=== PATIENT | male | born 1990 | race Caucasian/White ===

== ENCOUNTER 2016-12-01 23:11 | Emergency (ER) | payer OTHER ==
[~2016-12-01] VITALS: Ht 165.1 cm; Wt 73.1 kg
[~2016-12-01 23:11] MED LIST: ATV/1 PO; ETAN50IN2 SC; FOLI-11 PO; INDO-22 PO; RANI75TA7 PO
[2016-12-01 23:16] VITALS: Ht 165.1 cm; Wt 73.1 kg
[2016-12-01] MEDS ORDERED: SODIUM CHLORIDE 0.9% 1000ML 1,000 ML IV STA (23:28)
[2016-12-01] MEDS ORDERED: ZNTT/150 PO (23:42)
[2016-12-01] MEDS ORDERED: FOLI1TAB7 PO (23:42)
[2016-12-01] MEDS ORDERED: CITA40TA12 PO (23:43)
[2016-12-01] MEDS ORDERED: CLON2TAB3 PO (23:44)
[2016-12-01] MEDS ORDERED: BUPR8SUB19 SL (23:45)
[2016-12-02 00:03] LABS: BASO % 0.2 %; BASO ABS # 0.02 K/uL (0-0.2); COMPLETE YES; EOS % 1.9 %; HEMATOCRIT 38.8 % (42-52); IG% 0.2 %; LYMPH % 24.4 %; LYMPH ABS # 2.39 K/uL (1.2-3.4); MEAN CELL VOLUME 85.1 fL (80-100); MEAN CORPUSCULAR HEMOGLOBIN 30.7 pg (25-34); MEAN CORPUSCULAR HGB CONC 36.1 g/dl (32-36); MEAN PLATELET VOLUME 9.5 fL (7.4-10.4); MONO % 9.7 %; NEUT % 63.6 %; PLATELET COUNT 221 K/uL (130-400); RED BLOOD COUNT 4.56 M/uL (4.7-6.1); WHITE BLOOD COUNT 9.81 K/uL (4.8-10.8)
[2016-12-02 00:17] LABS: INR 1.1 (0.9-1.1); PARTIAL THROMBOPLASTIN RATIO 1.1; PROTHROMBIN TIME (PATIENT) 11.6 SECONDS (9.0-12.0)
[2016-12-02 00:29] LABS: ACETAMINOPHEN < 2 ug/ml (10-30)
[2016-12-02 00:33] LABS: ALKALINE PHOSPHATASE 68 U/L (45-117); ALT/SGPT 72 U/L (12-78); BLOOD UREA NITROGEN 29 mg/dl (7-18); BUN/CREATININE RATIO 24.3 (10-20); CALCIUM 8.9 mg/dl (8.5-10.1); CARBON DIOXIDE 27 mmol/L (21-32); CHLORIDE 101 mmol/L (98-107); GLUCOSE 102 mg/dl (70-99); SODIUM 137 mmol/L (136-145)
[2016-12-02 00:33] LABS: URINE APPEARANCE TURBID (CLEAR); URINE BILIRUBIN NEG (NEG); URINE COLOR DK YELLOW; URINE EPITHELIAL CELL AUTO >30 /lpf (0-5); URINE NITRITE NEG (NEG); URINE SPECIFIC GRAVITY 1.025 (1.000-1.030); UROBILINOGEN NEG (NEG)
[2016-12-02 00:37] LABS: MANUAL MICROSCOPIC REQUIRED? NO; REVIEW REQ? YES
[2016-12-02 00:53] LABS: BENZODIAZEPINE, URINE NEG (NEG); COCAINE,URINE POS (NEG); PHENCYCLIDINE, URINE NEG (NEG)
[2016-12-02] MEDS ORDERED: SODIUM CHLORIDE 0.9% 1000ML 1,000 ML IV STA (01:19)
[2016-12-02 01:35] LABS: POTASSIUM 3.6 mmol/L (3.5-5.1)
--- NOTE | 2016-12-02 03:13 | EMERGENCY ROOM VISIT NOTE ---
History First contact with patient: 23:22 Chief Complaint: ALTERED MENTAL STATUS Stated Complaint: ALTERED MENTAL STATUS/DRUG USE Nursing Triage Summary: Patient was shopping at [facility] "acting strange" when Police arrived patient was crawling between cars in the parking lot. Needle found on patient which he states he uses for Steroid injections. Patient very restless on arrival. Patient states he hasn't slept in two days because of his restless legs. Patient states he attempted to eat cotton candy to help with restless legs, but it didn't help. History of Present Illness The patient is a 26 year old male who presents to the Emergency Room with complaints of acting strange at [facility]. Patient states he took his Klonopin, and someone else's narcotics tonight. Patient denies shooting up any IV drugs tonight. He states the other day he shot up someone else's Dilaudid. Patient states he was outside [facility] smoking and his legs became restless and started wandering around the [facility] parking lot. Patient states he likes to eat a lot of cotton candy to help relax his legs. Patient denies chest pain, dyspnea, fever, chills, nausea, vomiting, diarrhea, diaphoresis, delusions, hallucinations, suicidal or homicidal ideations. Patient adamantly denies any IV drugs today. He adamantly denies any illegal drugs besides taking 2 Percocets that are not his. No alcohol today. The police found a needle in his pocket. Patient states he uses to shoot up his Dilaudid. Review of Systems See HPI for pertinent positives & negatives. A total of 10 systems reviewed and were otherwise negative. Past Medical/Surgical History None Social History Smoking Status: Current Every Day Smoker Alcohol Use: occasionally Drug Use: heroin Occupation Status: unemployed Current/Historical Medications Scheduled Buprenorphine Hcl (Subutex), Unknown Dose SL DAILY Citalopram Hydrobromide (Celexa), 40 MG PO DAILY Clonazepam (Klonopin), 2 MG PO DIRECTED Folic Acid (Folvite), 1 MG PO DAILY Indomethacin (Indocin), 50 MG PO TID Ranitidine (Zantac), 150 MG PO BID Allergies Coded Allergies: No Known Allergies (Unverified , 12/01/16) Physical Exam Vital Signs Date Time Temp Pulse Resp B/P Pulse Ox O2 Delivery O2 Flow Rate FiO2 12/02/16 02:24 108 16 138/88 97 Room Air 12/02/16 01:10 117 16 127/68 92 Room Air 12/02/16 00:10 115 12/01/16 23:59 Room Air 12/01/16 23:23 Room Air 12/01/16 23:16 36.9 111 16 124/72 95 Room Air Physical Exam VITALS: Vitals are noted on the nurse's note and reviewed by myself. Vital signs stable. GENERAL: White male answering questions appropriately, in no acute distress, nondiaphoretic, well-developed well-nourished. SKIN: Multiple track vee to bilateral arms of surrounding erythema and skin popping without palpable abscess The rest of the skin was without rashes, erythema, edema, or bruising. There is no tenting of the skin. Capillary reflex less than 2 seconds. HEAD: Normocephalic atraumatic. EARS: External auditory canals clear, tympanic membranes pearly keane without erythema or effusion bilaterally. EYES: Pupils pinpointed and are equal round and reactive to light and accommodation. Conjunctivae without injection, sclerae without icterus. Extraocular movements intact. NOSE: Patent, turbinates without inflammation or discharge. MOUTH: Mucous membranes moist. Pharynx without erythema or exudate. Uvula midline. Airway patent. Tongue does not deviate. NECK: Supple without nuchal rigidity. No lymphadenopathy. No thyromegaly. Cervical spine is nontender. No JVD. HEART: Regular rate and rhythm without murmurs gallops or rubs. LUNGS: Clear to auscultation bilaterally without wheezes, rales or rhonchi. No dullness to percussion. No retractions or accessory muscle use. ABDOMEN: Positive bowel sounds x 4. Normal tympanic percussion. Soft, nontender, without masses or organomegaly. Vila sign negative. No guarding or rebound tenderness. MUSCULOSKELETAL: No muscle atrophy, erythema, or edema noted. NEURO: Patient was alert and oriented to person place and time. Normal sensation to light and sharp touch. No focal neurological deficits. Medical Decision & Procedures Laboratory Results 12/01/16 23:47 Red Blood Count 4.56, Mean Corpuscular Volume 85.1, Mean Corpuscular Hemoglobin 30.7, Mean Corpuscular Hemoglobin Concent 36.1, Mean Platelet Volume 9.5, Neutrophils (%) (Auto) 63.6, Lymphocytes (%) (Auto) 24.4, Monocytes (%) (Auto) 9.7, Eosinophils (%) (Auto) 1.9, Basophils (%) (Auto) 0.2, Neutrophils # (Auto) 6.24, Lymphocytes # (Auto) 2.39, Monocytes # (Auto) 0.95, Eosinophils # (Auto) 0.19, Basophils # (Auto) 0.02 12/01/16 23:47 12/02/16 01:00 Test 12/01/16 23:47 12/02/16 00:00 12/02/16 01:00 White Blood Count 9.81 K/uL (4.8-10.8) Red Blood Count 4.56 M/uL (4.7-6.1) Hemoglobin 14.0 g/dL (14.0-18.0) Hematocrit 38.8 % (42-52) Mean Corpuscular Volume 85.1 fL (80-100) Mean Corpuscular Hemoglobin 30.7 pg (25-34) Mean Corpuscular Hemoglobin Concent 36.1 g/dl (32-36) Platelet Count 221 K/uL (130-400) Mean Platelet Volume 9.5 fL (7.4-10.4) Neutrophils (%) (Auto) 63.6 % Lymphocytes (%) (Auto) 24.4 % Monocytes (%) (Auto) 9.7 % Eosinophils (%) (Auto) 1.9 % Basophils (%) (Auto) 0.2 % Neutrophils # (Auto) 6.24 K/uL (1.4-6.5) Lymphocytes # (Auto) 2.39 K/uL (1.2-3.4) Monocytes # (Auto) 0.95 K/uL (0.11-0.59) Eosinophils # (Auto) 0.19 K/uL (0-0.5) Basophils # (Auto) 0.02 K/uL (0-0.2) RDW Standard Deviation 41.4 fL (36.4-46.3) RDW Coefficient of Variation 13.4 % (11.5-14.5) Immature Granulocyte % (Auto) 0.2 % Immature Granulocyte # (Auto) 0.02 K/uL (0.00-0.02) Prothrombin Time 11.6 SECONDS (9.0-12.0) Prothromb Time International Ratio 1.1 (0.9-1.1) Activated Partial Thromboplast Time 29.3 SECONDS (21.0-31.0) Partial Thromboplastin Ratio 1.1 Anion Gap 9.0 mmol/L (3-11) Est Creatinine Clear Calc Drug Dose 81.9 ml/min Estimated GFR () 96.8 Estimated GFR (Non- 83.5 BUN/Creatinine Ratio 24.3 (10-20) Osmolality 295 mOsm/kg (280-300) Calcium Level 8.9 mg/dl (8.5-10.1) Total Bilirubin 1.2 mg/dl (0.2-1) Alanine Aminotransferase (ALT/SGPT) 72 U/L (12-78) Alkaline Phosphatase 68 U/L (45-117) Total Protein 7.3 gm/dl (6.4-8.2) Albumin 3.8 gm/dl (3.4-5.0) Lipase 82 U/L (73-393) Salicylates Level < 1.7 mg/dl (2.8-20) Acetaminophen Level < 2 ug/ml (10-30) Ethyl Alcohol mg/dL < 3.0 mg/dl (0-3) Urine Color DK YELLOW Urine Appearance TURBID (CLEAR) Urine pH 5.0 (4.5-7.5) Urine Specific [place] 1.025 (1.000-1.030) Urine Protein NEG (NEG) Urine Glucose (UA) NEG (NEG) Urine Ketones 1+ (NEG) Urine Occult Blood 3+ (NEG) Urine Nitrite NEG (NEG) Urine Bilirubin NEG (NEG) Urine Urobilinogen NEG (NEG) Urine Leukocyte Esterase TRACE (NEG) Urine WBC (Auto) 5-10 /hpf (0-5) Urine RBC (Auto) 10-30 /hpf (0-4) Urine Hyaline Casts (Auto) 1-5 /lpf (0-5) Urine Epithelial Cells (Auto) >30 /lpf (0-5) Urine Bacteria (Auto) 2+ (NEG) Urine Renal Epithelial Cells /lpf (0-5) Urine Opiates Screen POS (NEG) Urine Methadone, Qualitative NEG (NEG) Urine Barbiturates NEG (NEG) Urine Phencyclidine (PCP) Level NEG (NEG) Ur Amphetamine/Methamphetamine POS (NEG) MDMA (Ecstasy) Screen POS (NEG) Urine Benzodiazepines Screen NEG (NEG) Urine Cocaine Metabolite POS (NEG) Urine Marijuana (THC) POS (NEG) Direct Bilirubin 0.3 mg/dl (0-0.2) Aspartate Amino Transf (AST/SGOT) 52 U/L (15-37) Total Creatine Kinase 717 U/L (39-308) Medications Administered Medications (Trade) Dose Ordered Sig/Velasquez Route Start Time Stop Time Status Last Admin Dose Admin Sodium Chloride 1,000 ml @ 999 mls/hr Q1H1M STAT IV 12/01/16 23:28 12/02/16 00:28 DC 12/01/16 23:54 999 MLS/HR Sodium Chloride (Nss 1000ml) 1,000 ml @ 999 mls/hr Q1H1M STAT IV 12/02/16 01:19 12/02/16 02:19 DC 12/02/16 02:24 999 MLS/HR ED Course Prior records/ancillary studies reviewed. Triage Nursing notes reviewed. Additional history obtained from nursing The patient's history was concerning for altered mental status and probable overdose. Differential diagnosis: Etiologies such as toxicologic, infection, hypoglycemia, electrolyte abnormalities, cardiac sources, intracerebral event, neurologic, as well as others were entertained. Physical examination: The patient had normal sensorium. No trauma noted. ER treatment provided: IV NSS 1 L bolus IV hydration NSS 1000 mL/hr Patient has been here before for IV drug use when a needle broke off in his arm her chart review. On reassessment the patient was stable and improving. Diagnostic interpretation by me: The electrocardiogram was negative for pathologic change. There was no QRS widening or interval prolongation. The labs revealed positive drug screen This appears to be consistent with an isolated overdose. Patient states he recreationally uses drugs to help relax. He states he's been more stressed lately with his home life. He is currently unemployed caring for his mother. Patient was discharged back home to his family in stable condition. Patient had no other medical complaints. He did not have acute abdomen on exam. By the evaluation outlined above emergent etiologies such as infection, hypoglycemia, electrolyte abnormalities, cardiac sources, intracerebral event, neurologic,as well as others were deemed relatively unlikely. The pt informed about the findings as listed above. All questions were answered and pleased with the treatment. Return instructions were outlined and the patient was discharged in stable condition. Referral: The patient was referred back to their primary care physician for follow-up in 2 to 3 days for a recheck of the current condition. Case reviewed with my attending. Medical Decision As above Impression Primary Impression: Polysubstance abuse Departure Information Dispostion Home / Self-Care Condition GOOD Referrals No Doctor, Assigned (PCP) Patient Instructions My [facility] Additional Instructions Recommend no illegal drug use. Recommend not to pick at your injection sites. Ibuprofen(Motrin, Advil) may be used for fever or pain. Use 600mg every six hours as needed. Take with food. Avoid using more than 2400mg in a 24 hour period. Do not use 2400mg per day for more than three consecutive days without physician direction. Prolonged inappropriate use can lead to stomach upset or ulcers. (AND/OR) Acetaminophen(Tylenol) may be used for fever or pain. Use 1000mg every six hours as needed. Avoid using more than 4000mg in a 24 hour period. Rest and drink plenty of fluids. Continue current medications. Return to the ER for severe pain, fevers, chest pain, difficulty breathing, abdominal pain, or any worsening of your condition. Follow up with your primary physician within 2-3 days for a recheck of the current condition.
[2016-12-02 03:27] VITALS: BP 144/78; PULSE 101; TEMP 36.9; O2SAT 96
[2016-12-07 15:28] LABS: COCAINE, URINE >50000 NG/ML (CUTOFF=100); COD UR 778 NG/ML (CUTOFF=50); HYDROCOD UR NEGATIVE NG/ML (CUTOFF=50); HYDROMOR UR 338 NG/ML (CUTOFF=50); MORPHINE UR >20000 NG/ML (CUTOFF=50); NORHYDROCODONE CONF UR NEGATIVE NG/ML (CUTOFF=50); OXYMORPH UR NEGATIVE NG/ML (CUTOFF=50)
== END 2016-12-02 03:29 | disposition home or self-care (01) ==
LOC: EDBD 23:11 → C.EDB 23:12
DX: F19.10 Other psychoactive substance abuse, uncomplicated (principal); F17.200 Nicotine dependence, unspecified, uncomplicated

== ENCOUNTER 2017-10-15 01:40 | Emergency (ER) | payer OTHER ==
[~2017-10-15] VITALS: Ht 165.1 cm; Wt 82.0 kg
[~2017-10-15 01:40] MED LIST changes: -ATV/1 PO; +BUPR8SUB19 SL; +CITA40TA12 PO; +CLON2TAB3 PO; -ETAN50IN2 SC; -FOLI-11 PO; +FOLI1TAB8 PO; -RANI75TA7 PO; +ZNTT/150 PO
[2017-10-15 01:46] VITALS: BP 143/87; PULSE 109; TEMP 36.8; O2SAT 95; Ht 165.1 cm; Wt 82.0 kg
[2017-10-15] MEDS ORDERED: LIDOCAINE HCL 1% 20 ML VIAL ONE (01:54)
[2017-10-15] MEDS ORDERED: DIPHTHERIA/TETANUS/PERTUSSIS 0.5 ML SYR/VIAL IM. ONE (02:00)
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
== END 2017-10-15 02:21 | disposition home or self-care (01) ==
LOC: C.EDB 01:44 → C.EDA 02:21
DX: S61.215A Laceration without foreign body of left ring finger without damage to nail, initial encounter (principal); W26.8XXA Contact with other sharp object(s), not elsewhere classified, initial encounter; Y92.149 Unspecified place in prison as the place of occurrence of the external cause; Z79.899 Other long term (current) drug therapy; F19.10 Other psychoactive substance abuse, uncomplicated

== ENCOUNTER 2017-11-03 09:00 | Emergency (ER) | payer OTHER ==
[~2017-11-03] VITALS: Ht 165.1 cm; Wt 86.0 kg
[2017-11-03 09:01] VITALS: Ht 165.1 cm; Wt 86.0 kg
[2017-11-03] MEDS ORDERED: OXYCODONE HCL IR 5 MG TAB (IMMEDIATE RELEASE) PO STA (09:31)
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
[2017-11-03] MEDS ORDERED: AMOX875T PO (10:36)
[2017-11-03] MEDS ORDERED: AMOXICILLIN/CLAVULANATE TAB 875 MG TAB PO ONE (10:45)
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
[2017-11-03] MEDS ORDERED: BUPR-83 PO (11:31)
[2017-11-03] MEDS ORDERED: MELO7.5T5 PO (11:31)
[2017-11-03 11:42] VITALS: BP 132/87; PULSE 90; TEMP 36.9; O2SAT 96
== END 2017-11-03 11:44 | disposition home or self-care (01) ==
LOC: C.EDB 09:00 → C.EDA 11:44
DX: T76.11XA Adult physical abuse, suspected, initial encounter (principal); S01.81XA Laceration without foreign body of other part of head, initial encounter; S00.83XA Contusion of other part of head, initial encounter; S61.259D Open bite of unspecified finger without damage to nail, subsequent encounter; W50.0XXA Accidental hit or strike by another person, initial encounter; Z87.891 Personal history of nicotine dependence; F11.90 Opioid use, unspecified, uncomplicated

== ENCOUNTER 2018-05-16 18:21 | Inpatient (IN) | payer OTHER ==
[~2018-05-16] VITALS: Ht 165.1 cm; Wt 90.5 kg
[~2018-05-16 18:21] MED LIST changes: +BUPR-83 PO; +CLON2TAB10 PO; -CLON2TAB3 PO; -INDO-22 PO; +MELO7.5T5 PO; +RANI150T85 PO; -ZNTT/150 PO
[2018-05-16] MEDS ORDERED: SODIUM CHLORIDE 0.9% 1000ML 1,000 ML IV STA (18:44)
[2018-05-16] MEDS ORDERED: CEFTRIAXONE SOD INJ 1 GM ADDVIAL IV STA (18:44)
[2018-05-16] MEDS ORDERED: INDO-24 PO (19:27)
[2018-05-16] MEDS ORDERED: OMEP20CA9 PO (19:28)
[2018-05-16] MEDS ORDERED: DOXY100C76 PO (19:28)
[2018-05-16 20:20] LABS: CREATININE 0.78 mg/dl (0.60-1.40)
[2018-05-16 20:21] LABS: ALBUMIN 3.2 gm/dl (3.4-5.0); CALCIUM 8.6 mg/dl (8.5-10.1); TOTAL PROTEIN 7.6 gm/dl (6.4-8.2)
[2018-05-16] MEDS ORDERED: VANCOMYCIN CONSULT ACTIVE PRN (21:00)
[2018-05-16] MEDS ORDERED: ACETAMINOPHEN 325 MG TAB PO PRN (21:00)
[2018-05-16] MEDS ORDERED: VANCOMYCIN IV 1,000 MG in SODIUM CHLORIDE 0.9% 250ML 250 ML IV SCH (21:00)
[2018-05-16] MEDS ORDERED: POLYETHYLENE (MIRALAX) 17 GM PACK PO PRN (21:00)
[2018-05-16] MEDS ORDERED: METHYLPREDNISOLONE IV 60 MG in SYRINGE 0 ML IV ONE (21:00)
[2018-05-16] MEDS ORDERED: ALUMINUM/MAGNESIUM/SIMETH (MAALOX MAX) 30 ML UDC PO PRN (21:00)
[2018-05-16] MEDS ORDERED: ONDANSETRON INJ 2 MG/ML 2 ML VIAL IV PRN (21:00)
[2018-05-16] MEDS ORDERED: TRAZ100T29 PO (21:07)
[2018-05-16] MEDS ORDERED: AMLO5TAB3 PO (21:07)
[2018-05-16] MEDS ORDERED: METHYLPREDNISOLONE 125 MG VIAL IV STA (21:10)
[2018-05-16] MEDS ORDERED: PIPERACILL/TAZOBAC CONSULT ACTIVE PRN (21:15)
[2018-05-16 21:25] LABS: BASO % 0.2 %; BASO ABS # 0.02 K/uL (0-0.2); EOS % 1.9 %; EOS ABS # 0.18 K/uL (0-0.5); HEMATOCRIT 39.6 % (42-52); HEMOGLOBIN 13.7 g/dL (14.0-18.0); IG# 0.02 K/uL (0.00-0.02); LYMPH % 16.6 %; LYMPH ABS # 1.61 K/uL (1.2-3.4); MEAN CELL VOLUME 88.4 fL (80-100); MEAN CORPUSCULAR HEMOGLOBIN 30.6 pg (25-34); MEAN CORPUSCULAR HGB CONC 34.6 g/dl (32-36); MEAN PLATELET VOLUME 9.4 fL (7.4-10.4); MONO % 9.6 %; MONO ABS # 0.93 K/uL (0.11-0.59); NEUT % 71.5 %; NEUT ABS # 6.92 K/uL (1.4-6.5); PLATELET COUNT 227 K/uL (130-400); RED CELL DISTRIBUTION WIDTH CV 13.7 % (11.5-14.5); RED CELL DISTRIBUTION WIDTH SD 44.2 fL (36.4-46.3); WHITE BLOOD COUNT 9.68 K/uL (4.8-10.8)
[2018-05-16 21:46] LABS: POTASSIUM 3.8 mmol/L (3.5-5.1)
[2018-05-16] MEDS ORDERED: PIPERACILL/TAZOBAC IV 3.375 GM in DEXTROSE 5% 100ML 100 ML IV SCH (22:00)
--- NOTE | 2018-05-16 22:51 | HISTORY & PHYSICAL EXAMINATION ---
DATE OF ADMISSION: 05/16/2018 CHIEF COMPLAINT: Diffuse pustular rash. HISTORY OF PRESENT ILLNESS: This is a 28-year-old male with past medical history significant for ankylosing spondylitis, history of substance abuse, chronic hepatitis C, history of depression, iritis, who presents with a diffuse rash. Patient says he develops this rash on and off and he has treated with doxycycline in the past, but this is the bad rash he has ever had. This started about 4 days ago,from neck down,involving thee trunk and lower extremities with areas of pustular rash with areas of normal skin in between. Seen dermatology today and biopsy was done, but since it is not getting better he came to hospital possibly for IV antibiotics. The patient says the last few days his appetite has gone down, but today he is feeling hungry. He has some diarrhea, he took Imodium today, but denies any blood or black stools. Making urine okay, no blood in the urine. He says he has some shortness of breath on exertion, but he also smokes tobacco. Denies any headache, no dizziness, no blurred visions, no earache, no runny nose, no sore throat, no difficulty swallowing, no chest pain, no cough.. He has some abdominal pain, pain at the skin lesion sites, with itching. No swelling in the legs. Currently resting comfortably, hemodynamically stable. ALLERGIES: No known drug allergies. PAST MEDICAL HISTORY: As mentioned above. PAST SURGICAL HISTORY: Colonoscopy with biopsy, removal of the clavicle abscess at age 19. MEDICATIONS: Currently the patient is on amlodipine 5 mg p.o. daily, Suboxone 1 film under tongue b.i.d., clindamycin ointment b.i.d., omeprazole 20 mg p.o. daily, trazodone 100 mg p.o. at bedtime, Wellbutrin SR 150 mg p.o. b.i.d., Celexa 40 mg p.o. daily, Klonopin 1 mg p.o. t.i.d. p.r.n., folic acid 1 mg p.o. daily, indomethacin 50 mg p.o. b.i.d., Zantac 150 mg p.o. b.i.d. FAMILY HISTORY: Significant for father had ankylosing spondylitis, CAD, COPD. Mother has breast cancer, hypertension. SOCIAL HISTORY: Smokes 1 pack a day for last 6 years. No alcohol use. History of marijuana and cocaine abuse in the past. REVIEW OF SYSTEMS: As per HPI. Rest of review of systems negative. PHYSICAL EXAMINATION: GENERAL: Patient is of moderate build, not in distress. VITAL SIGNS: Temperature 36.8, pulse 84, respiratory rate 16, blood pressure 160/92, oxygen 96% room air. HEENT: No pallor, no icterus. Pupils equal, round, and reactive to light. NECK: No JVD, no neck masses, no carotid bruit. CARDIOVASCULAR: S1, S2, regular rate and rhythm, no murmur, no gallop. RESPIRATORY SYSTEM: Normal AP diameter. No accessory muscle use. No wheezing, no crackles. ABDOMEN: Soft, bowel sounds present. Some tenderness. No guarding, no distention. CENTRAL NERVOUS SYSTEM: Cranial nerves II-XII grossly intact. Nonfocal. EXTREMITIES: No edema. No erythema. SKIN: Diffuse macular pustular rash involving below the neck to the trunk and lower extremities. LABORATORY DATA: Sodium 136, potassium pending, chloride 104, bicarb 24, BUN 14, creatinine 0.7, serum glucose 88, calcium 8.6, total bilirubin 0.7, direct bilirubin 0.2, AST 17, ALT 42, alkaline phosphatase is 81, lipase 70. ASSESSMENT AND PLAN: This 28-year-old male presents with a diffuse pustular rash. 1. Diffuse pustular rash involving from the neck, trunk, and extremities. Used to get this rash and treated with doxycycline in the past.But this time it's the worst rash he has ever had. He saw dermatology today and a biopsy was done. We will place him on IV vancomycin and IV Zosyn for any bacterial folliculitis and also a dose of IV steroids because of his underlying ankylosing spondylitis. Will check ESR and CRP and will follow his biopsy results. Consult dermatology and infectious disease in a.m. Antiviral treatment if needed as per ID and dermatology. 2. History of hypertension. Continue amlodipine. 3. History of depression, anxiety . on Wellbutrin and Celexa. Klonopin prn 4. History of drug abuse in the past, on Suboxone. 5. History of hepatitis C, needs followup. 6. Deep venous thrombosis prophylaxis. Could not give sequential compression devices. Patient has rash in his lower extremities. We will try to avoid Lovenox shots as patient has rash in his abdomen.Ambulation Level 1 full code. Disposition: expect to discharge home and followup with pcp and dermatology MTDD
[2018-05-16 23:42] VITALS: BP 157/84; PULSE 84; TEMP 37.3; O2SAT 97
[2018-05-16] MEDS ORDERED: VANCOMYCIN IV 2,250 MG in SODIUM CHLORIDE 0.9% 500ML 500 ML IV STA (23:52)
[2018-05-17] MEDS ORDERED: PIPERACILL/TAZOBAC IV 3.375 GM in D5W 100 ML IV ONE ×2
--- NOTE | 2018-05-17 00:07 | EMERGENCY ROOM VISIT NOTE ---
History Report prepared by Mony: Nirmala Garay Under the Supervision of: Dr. Denzel Mendoza D.O. First contact with patient: 18:34 Chief Complaint: RASH Stated Complaint: RASH STARTED NECK NOW ALL OVER BODY History of Present Illness The patient is a 28 year old male who presents to the Emergency Room with complaints of a constant, worsening whole-body rash beginning 4 or 5 days ago. He reports the rash began at the neck and has now spread all over his body. His mother notes the patient was seen by valet manager Dr. Erinn Guidry today, and referred to the ED for IV antibiotics. The patient states he has some SOB and diarrhea. He denies fevers, cough, runny nose, or chest pain. The mother reports he has had flare ups in the past, which were less severe than this episode, but the rash was the same, and treated by dermatologists in the [place] area. The patient notes he has been experiencing intermittent rash over the past 5 years, but it is generally confined to just his leg or arm. He reports the rash is itchy and painful. His mother notes he has never been diagnosed with anything specific, and that the rash resolves with antibiotic treatments. He reports he has never been told he has staph or strep. Neither the mother nor son can remember what kind of rash it is or what antibiotics he was treated with in the past. Source of History: patient, parent (mother) Onset: 4 or 5 days ago Position: other (skin, entire body) Quality: other (rash) Timing: constant, worsening Associated Symptoms: + SOB, + diarrhea, No fevers, No cough, No chest pain Note: Denies: runny nose Review of Systems See HPI for pertinent positives & negatives. A total of 10 systems reviewed and were otherwise negative. Past Medical & Surgical Medical Problems: (1) Ankylosing spondylitis (2) Diffuse papular rash Family History Patient reports no known family medical history. Social History Smoking Status: Current Every Day Smoker Alcohol Use: occasionally Drug Use: heroin Housing Status: other Occupation Status: unemployed Current/Historical Medications Scheduled Amlodipine (Norvasc), 5 MG PO DAILY Buprenorphine Hcl (Subutex), 8 MG SL BID Bupropion (Wellbutrin), 100 MG PO HS Citalopram Hydrobromide (Celexa), 40 MG PO DAILY Doxycycline Monohydrate (Monodox), 100 MG PO BID Folic Acid (Folvite), 1 MG PO DAILY Indomethacin (Indocin), 50 MG PO BID Omeprazole (Prilosec), 20 MG PO DAILY Trazodone Hcl (Trazodone), 100 MG PO DAILY Scheduled PRN Clonazepam (Klonopin), 2 MG PO DAILY PRN for Anxiety/Agitation Allergies Coded Allergies: No Known Allergies (Unverified , 05/16/18) Physical Exam Vital Signs Date Time Temp Pulse Resp B/P (MAP) Pulse Ox O2 Delivery O2 Flow Rate FiO2 05/16/18 23:18 72 18 159/89 94 Room Air 05/16/18 22:33 77 16 142/96 96 Room Air 05/16/18 21:30 99 167/99 97 Room Air 05/16/18 21:00 79 151/81 93 Room Air 05/16/18 20:25 84 16 160/92 96 Room Air 05/16/18 18:30 36.8 103 20 157/75 98 Room Air Physical Exam GENERAL: Sitting up in bed, alert, well appearing, well nourished, no distress, non-toxic EYE EXAM: normal conjunctiva. OROPHARYNX: no exudate, no erythema, lips, buccal mucosa, and tongue normal and mucous membranes are moist NECK: supple, no nuchal rigidity, no adenopathy, non-tender LUNGS: Clear to auscultation. Normal chest wall mechanics HEART: no murmurs, S1 normal and S2 normal ABDOMEN: abdomen soft, non-tender, normo-active bowel sounds, no masses, no rebound or guarding. BACK: Back is symmetrical on inspection and there is no deformity, no midline tenderness, no CVA tenderness. SKIN: Pustules covering entire body, with half being scabbed over and having surrounding erythema, tender to palpation UPPER EXTREMITIES: upper extremities are grossly normal. LOWER EXTREMITIES: No pitting edema. NEURO EXAM: Normal sensorium, cranial nerves II-XII grossly intact, normal speech, no gross weakness of arms, no gross weakness of legs. Medical Decision & Procedures Laboratory Results 05/16/18 21:06 Red Blood Count 4.48, Mean Corpuscular Volume 88.4, Mean Corpuscular Hemoglobin 30.6, Mean Corpuscular Hemoglobin Concent 34.6, Mean Platelet Volume 9.4, Neutrophils (%) (Auto) 71.5, Lymphocytes (%) (Auto) 16.6, Monocytes (%) (Auto) 9.6, Eosinophils (%) (Auto) 1.9, Basophils (%) (Auto) 0.2, Neutrophils # (Auto) 6.92, Lymphocytes # (Auto) 1.61, Monocytes # (Auto) 0.93, Eosinophils # (Auto) 0.18, Basophils # (Auto) 0.02 05/16/18 19:45 05/16/18 21:06 Test 05/16/18 19:45 05/16/18 21:06 05/16/18 21:37 Anion Gap 8.0 mmol/L (3-11) Est Creatinine Clear Calc Drug Dose 147.1 ml/min Estimated GFR () 143.4 Estimated GFR (Non- 123.7 BUN/Creatinine Ratio 17.6 (10-20) Calcium Level 8.6 mg/dl (8.5-10.1) Total Bilirubin 0.7 mg/dl (0.2-1) Alanine Aminotransferase (ALT/SGPT) 42 U/L (12-78) Alkaline Phosphatase 81 U/L (45-117) Total Protein 7.6 gm/dl (6.4-8.2) Albumin 3.2 gm/dl (3.4-5.0) Lipase 70 U/L (73-393) White Blood Count 9.68 K/uL (4.8-10.8) Red Blood Count 4.48 M/uL (4.7-6.1) Hemoglobin 13.7 g/dL (14.0-18.0) Hematocrit 39.6 % (42-52) Mean Corpuscular Volume 88.4 fL (80-100) Mean Corpuscular Hemoglobin 30.6 pg (25-34) Mean Corpuscular Hemoglobin Concent 34.6 g/dl (32-36) Platelet Count 227 K/uL (130-400) Mean Platelet Volume 9.4 fL (7.4-10.4) Neutrophils (%) (Auto) 71.5 % Lymphocytes (%) (Auto) 16.6 % Monocytes (%) (Auto) 9.6 % Eosinophils (%) (Auto) 1.9 % Basophils (%) (Auto) 0.2 % Neutrophils # (Auto) 6.92 K/uL (1.4-6.5) Lymphocytes # (Auto) 1.61 K/uL (1.2-3.4) Monocytes # (Auto) 0.93 K/uL (0.11-0.59) Eosinophils # (Auto) 0.18 K/uL (0-0.5) Basophils # (Auto) 0.02 K/uL (0-0.2) RDW Standard Deviation 44.2 fL (36.4-46.3) RDW Coefficient of Variation 13.7 % (11.5-14.5) Immature Granulocyte % (Auto) 0.2 % Immature Granulocyte # (Auto) 0.02 K/uL (0.00-0.02) Direct Bilirubin 0.2 mg/dl (0-0.2) Aspartate Amino Transf (AST/SGOT) 17 U/L (15-37) Total Creatine Kinase 44 U/L (39-308) Urine Color YELLOW Urine Appearance CLEAR (CLEAR) Urine pH 7.0 (4.5-7.5) Urine Specific [place] 1.009 (1.000-1.030) Urine Protein NEG (NEG) Urine Glucose (UA) NEG (NEG) Urine Ketones NEG (NEG) Urine Occult Blood NEG (NEG) Urine Nitrite NEG (NEG) Urine Bilirubin NEG (NEG) Urine Urobilinogen NEG (NEG) Urine Leukocyte Esterase NEG (NEG) Urine WBC (Auto) 0 /hpf (0-5) Urine RBC (Auto) 0-4 /hpf (0-4) Urine Hyaline Casts (Auto) 0 /lpf (0-5) Urine Epithelial Cells (Auto) 0-5 /lpf (0-5) Urine Bacteria (Auto) NEG (NEG) Laboratory results per my review. Medications Administered Medications (Trade) Dose Ordered Sig/Velasquez Route Start Time Stop Time Status Last Admin Dose Admin Sodium Chloride 1,000 ml @ 999 mls/hr Q1H1M STAT IV 05/16/18 18:44 05/16/18 19:44 DC 05/16/18 20:19 999 MLS/HR Ceftriaxone Sodium (Rocephin Inj) 1 gm NOW STAT IV 05/16/18 18:44 05/16/18 18:47 DC 05/16/18 20:19 1 GM Methylprednisolone Sodium Succinate (Solu-Medrol IV) 60 mg NOW STAT IV 05/16/18 21:10 05/16/18 21:11 DC 05/16/18 21:31 60 MG ED Course ED COURSE: Vital signs were reviewed and showed situational hypertension. The patients medical record was reviewed The above diagnostic studies were performed and reviewed. ED treatments and interventions as stated above. 1833: The patient was evaluated in room C9. A complete history and physical examination was performed. 1843: Ordered Rocephin Inj 1 gm IV, Sodium Chloride 1000 ml @ 999 mls/hr IV. 1903: I reviewed the notes from the patient's dermatology visit, which indicated that the valet manager considered psoriasis, MRSA folliculitis, inflammatory staph. 1951: I reevaluated and updated the patient. I discussed my findings with the patient and he understands and agrees with the treatment plan. 2028: I reviewed the patient's case with Anita Oden PA-C, [facility] hospitalist. She will evaluate the patient for further management. Based on the patients age, coexisting illnesses, exam and lab findings the decision to treat as an inpatient was made. The patient remained stable while under my care. The patient will be evaluated for further management. Medical Decision Etiologies such as contact dermatitis, viral exanthem, urticaria, allergic reaction, Hdz-Jair syndrome, toxic epidermal necrolysis, erythema multiforme, cellulitis, scabies, HSV, varicella, zoster, eczema, staph scalded skin syndrome, fungal infection, as well as others were entertained. Patient is a 28-year-old male sent in by dermatology for diffuse rash. There are concern for infection. He has had this before in the past and was treated with antibiotics. Family and patient are uncertain of the true cause of this. Culture was obtained and sent. Pt was placed on ABX and admitted to IM as he had failed out Pt ABX. CBC along with BMP was unremarkable. LFTs and bilirubin were normal. Lipase is normal. UA was negative. Patient was updated bedside admitted to internal medicine. Medication Reconcilliation Current Medication List: was personally reviewed by me Blood Pressure Screening Patient's blood pressure: Elevated blood pressure Blood pressure disposition: Elevated BP felt to be situational Consults Time Called: 2025 Consulting Physician: Anita Oden PA-C, [facility] hospitalist Returned Call: 2028 I reviewed the patient's case with Anita Oden PA-C, [facility] hospitalist. She will evaluate the patient for further management. Impression Primary Impression: Folliculitis Scribe Attestation The scribe's documentation has been prepared under my direction and personally reviewed by me in its entirety. I confirm that the note above accurately reflects all work, treatment, procedures, and medical decision making performed by me. Departure Information Dispostion Being Evaluated By Hospitalist Prescriptions Trazodone Hcl (Trazodone) 100 Mg Tab 100 MG PO DAILY, #30 TAB Prov: Juan M Cummings MD 05/16/18 Amlodipine (Norvasc) 5 Mg Tab 5 MG PO DAILY, #30 TAB Prov: Juan M Cummings MD 05/16/18 Referrals Person [facility] (PCP) Patient Instructions My [facility]
[2018-05-17] MEDS: SODIUM CHLORIDE 0.9% 1000ML 1,000 ML IV SCH ×2 (00:09→13:30)
[2018-05-17] MEDS: CLONAZEPAM 1 MG TAB PO PRN ×2 (00:29→21:16)
[2018-05-17] MEDS: BUPRENORPHINE HCL 8 MG SUBL SL SCH ×3 (00:29→20:57)
[2018-05-17] MEDS: INDOMETHACIN 25 MG CAP PO SCH ×3 (00:29→20:56)
[2018-05-17] MEDS: TRAZODONE HCL 100 MG TAB PO SCH ×2 (00:30→20:56)
[2018-05-17 00:38] VITALS: Ht 165.1 cm; Wt 90.5 kg
[2018-05-17] MEDS: PIPERACILL/TAZOBAC IV 3.375 GM in D5W 100ML IV SCH ×3 (06:44→22:05)
[2018-05-17 06:52] VITALS: BP 176/90; PULSE 60; TEMP 36.6; O2SAT 95
[2018-05-17 07:11] LABS: BASO % 0.1 %; BASO ABS # 0.01 K/uL (0-0.2); EOS % 0.1 %; EOS ABS # 0.01 K/uL (0-0.5); HEMATOCRIT 43.9 % (42-52); HEMOGLOBIN 15.4 g/dL (14.0-18.0); IG# 0.04 K/uL (0.00-0.02); LYMPH % 9.3 %; MEAN CELL VOLUME 87.8 fL (80-100); MEAN CORPUSCULAR HEMOGLOBIN 30.8 pg (25-34); MEAN CORPUSCULAR HGB CONC 35.1 g/dl (32-36); MEAN PLATELET VOLUME 9.8 fL (7.4-10.4); MONO % 2.7 %; MONO ABS # 0.32 K/uL (0.11-0.59); NEUT % 87.5 %; NEUT ABS # 10.29 K/uL (1.4-6.5); PLATELET COUNT 253 K/uL (130-400); RED CELL DISTRIBUTION WIDTH CV 13.5 % (11.5-14.5); WHITE BLOOD COUNT 11.77 K/uL (4.8-10.8)
[2018-05-17 07:38] LABS: CREATININE 0.87 mg/dl (0.60-1.40); POTASSIUM 4.2 mmol/L (3.5-5.1)
[2018-05-17] MEDS ORDERED: VANCOMYCIN IV 1,750 MG in SODIUM CHLORIDE 0.9% 500ML 500 ML IV SCH (08:00)
[2018-05-17] MEDS ORDERED: TRAZODONE HCL 100 MG TAB PO SCH (09:00)
[2018-05-17] MEDS: PANTOprazole SOD 40 MG TAB PO SCH (09:08)
[2018-05-17] MEDS: CITALOPRAM 40 MG TAB PO SCH (09:08)
[2018-05-17] MEDS: AMLODIPINE BESYLATE 5 MG TAB PO SCH (09:08)
--- NOTE | 2018-05-17 11:19 | Pharmacy Progress Note ---
Pharmacy Abx Initial Consult Date of Service May 17, 2018. Pharmacy Dosing Scope Date of Consult: 05/16/18 Consultation requested by: Dr. Cummings Pharmacy is consulted to initiate Vancomycin and Zosyn IV dosing therapy, order appropriate labs and adjust drug dose/frequency. Subjective The patient is a 28 year old male admitted on May 16, 2018 at 21:06. Objective Height (Feet): 5 Height (Inches): 5.00 Weight (Kilograms): 90.500 Vital Signs (Past 12Hrs) Vital Signs Past 12 Hours Date Time Temp Pulse Resp B/P (MAP) Pulse Ox O2 Delivery O2 Flow Rate FiO2 05/17/18 07:36 Room Air 05/17/18 06:52 36.6 60 18 176/90 (118) 95 Room Air 05/17/18 00:38 Room Air 05/16/18 23:42 37.3 84 18 157/84 (108) 97 Room Air 05/16/18 23:18 72 18 159/89 94 Room Air Lab Results (24Hrs) Laboratory Tests (24 Hours) Test 05/16/18 21:06 05/17/18 06:19 Total Creatine Kinase 44 U/L (39-308) C-Reactive Protein 4.48 mg/dl (0-0.29) H Erythrocyte Sedimentation Rate 36 mm/hr (0-14) H White Blood Count 11.77 K/uL (4.8-10.8) H Red Blood Count 5.00 M/uL (4.7-6.1) Hemoglobin 15.4 g/dL (14.0-18.0) Hematocrit 43.9 % (42-52) Mean Corpuscular Volume 87.8 fL (80-100) Mean Corpuscular Hemoglobin 30.8 pg (25-34) Mean Corpuscular Hemoglobin Concent 35.1 g/dl (32-36) Platelet Count 253 K/uL (130-400) Mean Platelet Volume 9.8 fL (7.4-10.4) Neutrophils (%) (Auto) 87.5 % Lymphocytes (%) (Auto) 9.3 % Monocytes (%) (Auto) 2.7 % Eosinophils (%) (Auto) 0.1 % Basophils (%) (Auto) 0.1 % Neutrophils # (Auto) 10.29 K/uL (1.4-6.5) H Lymphocytes # (Auto) 1.10 K/uL (1.2-3.4) L Monocytes # (Auto) 0.32 K/uL (0.11-0.59) Eosinophils # (Auto) 0.01 K/uL (0-0.5) Basophils # (Auto) 0.01 K/uL (0-0.2) Micro Results Date/Time Source Procedure Growth Status 05/16/18 20:25 Skin Leg Lower Left Gram Stain - Final Resulted 05/16/18 20:25 Skin Leg Lower Left Wound Culture Pending Resulted Assessment & Plan Assessment 28 year old male presenting with a diffuse pustular rash involving the neck, trunk and extremities that started 4 days ago. Was seen by dermatology today and a biopsy was done. Used to get a similar rash and was treated with doxycycline, but the current rash appears worse than before. Wound culture from his leg is currently pending. ID is consulted. Plan Vancomycin and Zosyn for treatment of Folliculitis Vancomycin IV * Loading dose: 2250 mg (25 mg/kg) * Maintenance dose: 1250 mg IV (14 mg/kg) every 8 hours * Estimated Pharmacokinetics: ke=0.107, t1/2=6.5 hrs * Goal trough level for folliculitis : ~15 mcg/mL * Trough level ordered for 05/18/18 at 0730 Piperacillin/tazobactam * 3.375 g bolus administered over 30 minutes, then 3.375 g IV extended infusion every 8 hours for CrCl greater than 20 mL/min Pharmacy will continue to follow and will adjust dose/frequency as necessary. Thank you.
[2018-05-17 12:19] VITALS: BP 146/79
--- NOTE | 2018-05-17 14:29 | Progress Note ---
Progress Note Date of Service May 17, 2018. Progress Note ID Consult Dictated #[id number] A/P: 1. Rash -? infection vs autoimmune - ? primary varicella, will start acyclovir, check ab -Suggest continue abx, follow wound culture - ? secondary infection. outpt biopsy result -Derm eval pending -Suggest HCV viral load, HIV testing -Will follow
--- NOTE | 2018-05-17 14:40 | INFECT. DISEASE CONSULTATION ---
DATE OF CONSULTATION: 05/17/2018 HISTORY OF PRESENT ILLNESS: This is a 28-year-old gentleman who was admitted to the hospital yesterday after he had worsening diffuse rash. Per the H and P, he has had this rash intermittently in the past; however, on my examination today, he denies ever having rash like this before. He did have an outpatient dermatology appointment yesterday and a biopsy was obtained. He is unable to tell me where he had this biopsy done. He was given treatment for this as an outpatient, but felt that he was getting worse and subsequently came to the Emergency Room last evening. He has been afebrile since admission and he denies any fevers at home. He denies any bug bites, tick bites or any new medications. He denies any new antibiotics. He denies any new soaps or detergents. He has multiple family members in the room with him at the time of my exam. He does not have the results of his biopsy. He was started on empiric antibiotics of vancomycin and Zosyn upon admission and he is tolerating these well. His only complaint is of itching. He does state that when he scratched some lesions, he does have some purulent drainage. A wound culture was obtained and is pending. UA was negative. A sed rate was mildly elevated at 36. He did have a mild elevation in his white blood cell count from 9.6 yesterday to 11, but he has also received systemic steroids. Currently, he denies any cough, shortness of breath, nausea, vomiting, diarrhea or abdominal pain. He has no urinary complaints. He has no change in his weight. He has no change in his appetite. He denies any headache or visual changes. A dermatology evaluation is pending. Results of his biopsy from yesterday are still pending. The patient has a history of ankylosing spondylitis. It is not clear where he follows up. He also has a history of substance abuse, chronic hepatitis C which has not been treated, depression and iritis. Again, family members are asking several questions regarding diagnoses, treatment, time of discharge and why the patient has not received multiple medications after his admission to the hospital. They are also requesting several topical ointments as well as systemic medications for itching during my examination. REVIEW OF SYSTEMS: His remaining review of systems is reviewed and unremarkable. ALLERGIES: There are no known drug allergies. PAST MEDICAL HISTORY: As above. PAST SURGICAL HISTORY: Significant for colonoscopy with biopsy in the past and removal of the clavicle abscess at the age of 19. FAMILY HISTORY: Noncontributory. SOCIAL HISTORY: Significant for daily tobacco use. He denies any alcohol use. He does admit to marijuana and cocaine use in the past and he currently is on Suboxone therapy. CURRENT MEDICATIONS: Trazodone, vancomycin, Celexa, folic acid, Protonix, Norvasc, Zosyn, Tylenol, Maalox, MiraLax, Zofran, Wellbutrin, Klonopin, indomethacin. PHYSICAL EXAMINATION: VITAL SIGNS: He is afebrile, pulse 60, respiratory rate 18, blood pressure 146/79, oxygen saturation is 95% on room air. GENERAL: He is awake, alert and oriented x3. He is in no acute distress. HEENT: Mucous membranes are moist. HEART: Regular. LUNGS: Clear. ABDOMEN: Nondistended. EXTREMITIES: There is no lower extremity edema. SKIN: Examination of the skin reveals diffuse pustular rash on the trunk, abdomen, neck, chest, lower extremities. There are no vesicular lesions; however, they do appear pustular in form. There is no warmth or erythema. There is no tenderness to palpation. LABORATORY STUDIES: CBC today 11.7, hemoglobin 15.4, platelets 253. Sed rate 36. Chemistry panel: Sodium 137, potassium 4.2, chloride 107, bicarbonate 24, BUN 12, creatinine 0.8, glucose 147. LFTs are within normal limits. UA is negative. Wound culture is pending. Gram stain has rare gram-positive cocci and there is no imaging to review. ASSESSMENT AND PLAN: Diffuse rash. Dermatology evaluation is pending. Biopsy results are pending. Culture results are pending. He can remain on antibiotics. This does not appear to be herpetic. There are no vesicular lesions. This did not appear consistent with chickenpox. I do not know if this is a manifestation of untreated hepatitis C. Biopsies are pending. Hep C viral load can be obtained. I would also suggest HIV testing with his history of substance abuse. Additionally, autoimmune disorders can bring about skin manifestations, I do not know his previous treatment for ankylosing spondylitis or any previous workup that has been done for this. We will follow along with you. Thank you for this consultation.
[2018-05-17 15:28] VITALS: BP 127/73; PULSE 64; TEMP 36.8; O2SAT 94
[2018-05-17 16:00] VITALS: O2SAT 94
[2018-05-17] MEDS ORDERED: VANCOMYCIN IV 1,250 MG in SODIUM CHLORIDE 0.9% 250ML 250 ML IV SCH (16:00)
[2018-05-17] MEDS: ACYCLOVIR SOD INJ 750 MG in DEXTROSE 5% 250ML 250 ML IV SCH ×2 (16:07→22:45)
--- NOTE | 2018-05-17 17:00 | Progress Note ---
Internal Med Progress Note Date of Service: May 17, 2018. Provider Documentation: SUBJECTIVE: Complains of diffuse itching, pain due to diffuse rash Worse on bilateral thigh and torso No fever or chills No complaint of shortness of breath or orthopnea, no cough OBJECTIVE: Vital Signs-as noted below Exam: General-young male, in distress secondary to itching and pain Eyes-sclera nonicteric ENT-moist oral mucosa Neck-supple, trachea midline, large pustular rash on side of neck Lungs-no wheeze or rale Heart-regular S1-S2 Abdomen-diffuse rash with elevated macular/pustular crusting Gralise to abdomen and torso, large pustular rash on epigastric area Extremities-diffuse pustular rash-with different stages of crusting, erythematous base on both upper and lower extremity and torso, and reports of intense itching Neuro-no local neurological deficit Lab data as noted below. ASSESSMENT & PLAN: Diffuse pustular rash involving being neck EXTREMITIES TRUNK AND ABDOMEN: Patient was evaluated by dermatology an outpatient Had skin biopsy done Evaluated outpatient report,-culture from the skin specimen growing staph aureus MRSA Plan of care discussed with on-call dermatology -Believe patient has some sort of pustular skin lesion worsen with secondary infection -In agreement with IV antibiotic with daptomycin to cover for MRSA -ID eval requested Appreciate input, given different stage of crusting, and itching of the rash Concern for possible viral infection/chickenpox Added acyclovir IV And will be continued with IV daptomycin and Zosyn for secondary infection Follow the wound culture obtained during this hospital admission No evidence of sepsis Benadryl ordered for intense itching of the rash HYPERTENSION Blood pressure stable, continue amlodipine HISTORY OF DEPRESSION ANXIETY DISORDER Continue SSRI/and Klonopin as needed HISTORY OF DRUG ABUSE IN THE PAST Continue Suboxone CODE STATUS: Full code DVT PROPHYLAXIS Low risk SCD and teds avoided secondary to lower extremity diffuse rash Patient is encouraged to ambulate DISPOSITION Expected to be discharged home when medically stable Update given to mother present at bedside Vital Signs: Date Time Temp Pulse Resp B/P (MAP) Pulse Ox O2 Delivery O2 Flow Rate FiO2 05/18/18 16:00 Room Air 05/18/18 14:50 36.6 87 18 155/84 (107) 95 Room Air 05/18/18 08:00 Room Air 05/18/18 07:38 36.7 72 18 121/69 (86) 94 Room Air 05/18/18 00:30 Room Air 05/17/18 23:30 36.9 64 18 125/79 (94) 96 Room Air Lab Results: Results Past 24 Hours Test 05/18/18 07:29 Range/Units Creatinine 0.97 0.60-1.40 mg/dl Est Creatinine Clear Calc Drug Dose 118.3 ml/min Estimated GFR () 123.5 Estimated GFR (Non- 106.6
[2018-05-17] MEDS ORDERED: DiphenhydrAMINE INJ 25 MG in SYRINGE 0 ML IV PRN (19:15)
[2018-05-17] MEDS ORDERED: DAPTOmycin IV 550 MG in SYRINGE 0 ML IV ONE (20:00)
[2018-05-17] MEDS: DiphenhydrAMINE HCL 50 MG/ML VIAL IV PRN (20:57)
[2018-05-17 23:30] VITALS: BP 125/79; PULSE 64; TEMP 36.9; O2SAT 96
[2018-05-17] MEDS ORDERED: VANCOMYCIN TROUGH ONE (23:30)
[2018-05-18] MEDS: PIPERACILL/TAZOBAC IV 3.375 GM in D5W 100ML IV SCH (05:39)
[2018-05-18] MEDS: ACYCLOVIR SOD INJ 750 MG in DEXTROSE 5% 250ML 250 ML IV SCH ×3 (06:05→22:41)
[2018-05-18] MEDS ORDERED: VANCOMYCIN TROUGH ONE (07:30)
[2018-05-18 07:38] VITALS: BP 121/69; PULSE 72; TEMP 36.7; O2SAT 94
[2018-05-18 08:24] LABS: CREATININE 0.97 mg/dl (0.60-1.40)
[2018-05-18] MEDS: CITALOPRAM 40 MG TAB PO SCH (08:32)
[2018-05-18] MEDS: PANTOprazole SOD 40 MG TAB PO SCH (08:33)
[2018-05-18] MEDS: AMLODIPINE BESYLATE 5 MG TAB PO SCH (08:33)
[2018-05-18] MEDS: BUPRENORPHINE HCL 8 MG SUBL SL SCH ×2 (08:33→21:06)
[2018-05-18] MEDS: INDOMETHACIN 25 MG CAP PO SCH ×2 (08:33→21:06)
[2018-05-18] MEDS ORDERED: DAPTOmycin IV 550 MG in SYRINGE 0 ML IV SCH (14:00)
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
[2018-05-18 14:50] VITALS: BP 155/84; PULSE 87; TEMP 36.6; O2SAT 95
[2018-05-18] MEDS: SULFAMETHOXAZOLE/TRIMETHOPRIM DS 800/160MG TAB PO SCH ×2 (16:34→21:07)
--- NOTE | 2018-05-18 19:25 | Progress Note ---
Internal Med Progress Note Date of Service: May 18, 2018. Provider Documentation: SUBJECTIVE: Intense itching on diffuse rash in extremities has improved a bit no fever or chills much less anxious today OBJECTIVE: Vital Signs-as noted below Exam: General-young male, in distress secondary to itching and pain Eyes-sclera nonicteric ENT-moist oral mucosa Neck-supple, trachea midline, large pustular rash on side of neck Lungs-no wheeze or rale Heart-regular S1-S2 Abdomen-diffuse rash with elevated macular/pustular crusting Gralise to abdomen and torso, large pustular rash on epigastric area Extremities-diffuse pustular rash-with different stages of crusting, erythematous base on both upper and lower extremity and torso, and reports of intense itching Neuro-no local neurological deficit Lab data as noted below. ASSESSMENT & PLAN: DIFFUSE PUSTULAR RASH INVOLVING BEING NECK EXTREMITIES TRUNK AND ABDOMEN: Patient was evaluated by dermatology an outpatient Had skin biopsy done-shows pustular infection Plan of care discussed with on-call dermatology -Believe patient has some sort of pustular skin lesion worsen with secondary infection -In agreement with IV antibiotic with daptomycin to cover for MRSA -ID eval requested-appreciate input Appreciate input, given different stage of crusting, and itching of the rash Concern for possible viral infection/chickenpox Added acyclovir IV IV acyclovir can be changed to Valtrex 1 g p.o. 3 times daily for 7 days of treatment-on discharge -Wound culture growing staph aureus MRSA -Antibiotic changed to Bactrim-will need No evidence of sepsis Benadryl ordered for intense itching of the rash HYPERTENSION Blood pressure stable, continue amlodipine HISTORY OF DEPRESSION ANXIETY DISORDER Continue SSRI/and Klonopin as needed HISTORY OF DRUG ABUSE IN THE PAST Continue Suboxone CODE STATUS: Full code DVT PROPHYLAXIS Low risk SCD and teds avoided secondary to lower extremity diffuse rash Patient is encouraged to ambulate DISPOSITION Expected to be discharged home next 24-48 hrs Vital Signs: Date Time Temp Pulse Resp B/P (MAP) Pulse Ox O2 Delivery O2 Flow Rate FiO2 05/19/18 08:00 Room Air 05/19/18 07:36 36.4 63 16 149/92 (111) 97 Room Air 05/19/18 00:02 Room Air 05/18/18 23:30 36.9 105 18 107/68 (81) 95 Room Air 8/9/18 16:00 Room Air Lab Results: Results Past 24 Hours Test 05/19/18 07:10 Range/Units Creatinine 1.15 0.60-1.40 mg/dl Est Creatinine Clear Calc Drug Dose 99.8 ml/min Estimated GFR () 100.5 Estimated GFR (Non- 86.7
[2018-05-18] MEDS: TRAZODONE HCL 100 MG TAB PO SCH (21:06)
[2018-05-18] MEDS: CLONAZEPAM 1 MG TAB PO PRN (21:09)
[2018-05-18] MEDS: DiphenhydrAMINE HCL 50 MG/ML VIAL IV PRN (21:16)
[2018-05-18 23:30] VITALS: BP 107/68; PULSE 105; TEMP 36.9; O2SAT 95
[2018-05-19 07:36] VITALS: BP 149/92; PULSE 63; TEMP 36.4; O2SAT 97
[2018-05-19] MEDS: ACYCLOVIR SOD INJ 750 MG in DEXTROSE 5% 250ML 250 ML IV SCH ×2 (07:48→15:30)
[2018-05-19 07:59] LABS: CREATININE 1.15 mg/dl (0.60-1.40)
[2018-05-19] MEDS: BUPRENORPHINE HCL 8 MG SUBL SL SCH (08:38)
[2018-05-19] MEDS: INDOMETHACIN 25 MG CAP PO SCH (08:39)
[2018-05-19] MEDS: SULFAMETHOXAZOLE/TRIMETHOPRIM DS 800/160MG TAB PO SCH (08:39)
[2018-05-19] MEDS: CITALOPRAM 40 MG TAB PO SCH (08:39)
[2018-05-19] MEDS: AMLODIPINE BESYLATE 5 MG TAB PO SCH (08:39)
[2018-05-19] MEDS: PANTOprazole SOD 40 MG TAB PO SCH (08:39)
[2018-05-19] MEDS ORDERED: SULF-302 PO (15:31)
--- NOTE | 2018-05-19 15:31 | Discharge Instructions ---
Discharge Instructions Date of Service May 19, 2018. Admission Reason for Admission: Diffuse Papular Rash Discharge Discharge Diagnosis / Problem: INFECTED RASH /POSSIBLE VERICELLA WITH STAPH MRSA INFECTION Discharge Goals Goal(s): Decrease discomfort, Improve function, Increase independence, Improve disease control, Therapeutic intervention Activity Recommendations Activity Limitations: resume your previous activity . Instructions / Follow-Up Instructions / Follow-Up HOSPITAL FOLLOW UP : 05/25/2018 @ 10:[address] Belia Elmore DO Family [facility] RHEUMATOLOGY FOLLOW UP : 05/22/2018 @ 2:[address] Mari Garcia MD Rheumatology [facility] Diet Patient's current hospital diet: Regular Diet Discharge Diet Recommended Diet: Regular Diet Pending Studies Studies pending at discharge: no Medical Emergencies . Who to Call and When: Medical Emergencies: If at any time you feel your situation is an emergency, please call 911 immediately. . Non-Emergent Contact Non-Emergency issues call your: Primary Care Provider . . "Provider Documentation" section prepared by Meron Gardner. .
[2018-05-19] MEDS ORDERED: VALA1TAB31 PO (15:37)
[2018-05-19] MEDS ORDERED: DIPH25CA65 PO (15:38)
[2018-05-19] MEDS: CLONAZEPAM 1 MG TAB PO PRN (16:19)
[2018-05-19 16:37] VITALS: BP 149/92; PULSE 63; TEMP 36.4; O2SAT 97
--- NOTE | 2018-05-22 07:06 | Discharge Summary ---
Discharge Summary Date of Service May 22, 2018. Discharge Summary Admission Date: May 16, 2018 at 21:06 Discharge Date: May 19, 2018 Discharge Disposition: Home Principal Diagnosis: INFECTED RASH /POSSIBLE VARICELLA WITH STAPH MRSA INFECTION Consultations: INFECTIOUS DISEASE DR HARRELL Medication Reconciliation New Medications: Diphenhydramine Hcl (Benadryl Allergy) 25 Mg Cap 1 CAP PO Q6 PRN for Itching, #30 CAP 1 Refill OVER THE COUNTER Valacyclovir Hcl (Valtrex) 1 Gm Tab 1 TAB PO TID for 7 Days, #21 TAB Sulfamethoxazole-Trimethoprim (Smz-Tmp Ds) 1 Tab Tab 1 TAB PO Q12 for 7 Days, #14 TAB Continued Medications: Amlodipine (Norvasc) 5 Mg Tab 5 MG PO DAILY, #30 TAB Buprenorphine Hcl (Subutex) 8 Mg Sub 8 MG SL BID for 7 Days, #14 TAB Bupropion (Wellbutrin) 100 Mg Tab 100 MG PO HS, TAB Citalopram Hydrobromide (Celexa) 40 Mg Tab 40 MG PO DAILY, TAB Clonazepam (Klonopin) 2 Mg Tab 2 MG PO DAILY PRN for Anxiety/Agitation, TAB Folic Acid (Folvite) 1 Mg Tab 1 MG PO DAILY, TAB Indomethacin (Indocin) 50 Mg Cap 50 MG PO BID, #20 CAP WITH FOOD UNTIL PAIN RESOLVES Omeprazole (Prilosec) 20 Mg Cap 20 MG PO DAILY, CAP Trazodone Hcl (Trazodone) 100 Mg Tab 100 MG PO DAILY, #30 TAB Discontinued Medications: Doxycycline Monohydrate (Monodox) 100 Mg Cap 100 MG PO BID, CAP Admission Information HPI (per Admitting provider): THE PATIENT. DATE OF ADMISSION: 05/16/2018 CHIEF COMPLAINT: Diffuse pustular rash. HISTORY OF PRESENT ILLNESS: This is a 28-year-old male with past medical history significant for ankylosing spondylitis, history of substance abuse, chronic hepatitis C, history of depression, iritis, who presents with a diffuse rash. Patient says he develops this rash on and off and he has treated with doxycycline in the past, but this is the bad rash he has ever had. This started about 4 days ago,from neck down,involving thee trunk and lower extremities with areas of pustular rash with areas of normal skin in between. Seen dermatology today and biopsy was done, but since it is not getting better he came to hospital possibly for IV antibiotics. The patient says the last few days his appetite has gone down, but today he is feeling hungry. He has some diarrhea, he took Imodium today, but denies any blood or black stools. Making urine okay, no blood in the urine. He says he has some shortness of breath on exertion, but he also smokes tobacco. Denies any headache, no dizziness, no blurred visions, no earache, no runny nose, no sore throat, no difficulty swallowing, no chest pain, no cough.. He has some abdominal pain, pain at the skin lesion sites, with itching. No swelling in the legs. Currently resting comfortably, hemodynamically stable. ALLERGIES: No known drug allergies. PAST MEDICAL HISTORY: As mentioned above. PAST SURGICAL HISTORY: Colonoscopy with biopsy, removal of the clavicle abscess at age 19. MEDICATIONS: Currently the patient is on amlodipine 5 mg p.o. daily, Suboxone 1 film under tongue b.i.d., clindamycin ointment b.i.d., omeprazole 20 mg p.o. daily, trazodone 100 mg p.o. at bedtime, Wellbutrin SR 150 mg p.o. b.i.d., Celexa 40 mg p.o. daily, Klonopin 1 mg p.o. t.i.d. p.r.n., folic acid 1 mg p.o. daily, indomethacin 50 mg p.o. b.i.d., Zantac 150 mg p.o. b.i.d. FAMILY HISTORY: Significant for father had ankylosing spondylitis, CAD, COPD. Mother has breast cancer, hypertension. SOCIAL HISTORY: Smokes 1 pack a day for last 6 years. No alcohol use. History of marijuana and cocaine abuse in the past. REVIEW OF SYSTEMS: As per HPI. Rest of review of systems negative. Physical Exam (per Admitting): PHYSICAL EXAMINATION: GENERAL: Patient is of moderate build, not in distress. VITAL SIGNS: Temperature 36.8, pulse 84, respiratory rate 16, blood pressure 160/92, oxygen 96% room air. HEENT: No pallor, no icterus. Pupils equal, round, and reactive to light. NECK: No JVD, no neck masses, no carotid bruit. CARDIOVASCULAR: S1, S2, regular rate and rhythm, no murmur, no gallop. RESPIRATORY SYSTEM: Normal AP diameter. No accessory muscle use. No wheezing, no crackles. ABDOMEN: Soft, bowel sounds present. Some tenderness. No guarding, no distention. CENTRAL NERVOUS SYSTEM: Cranial nerves II-XII grossly intact. Nonfocal. EXTREMITIES: No edema. No erythema. SKIN: Diffuse macular pustular rash involving below the neck to the trunk and lower extremities. Hospital Course DIFFUSE PUSTULAR RASH INVOLVING BEING NECK EXTREMITIES TRUNK AND ABDOMEN: Symptom has improved rashes started to evolve to crust , with less itching /erythema Patient was evaluated by dermatology an outpatient Had skin biopsy done-shows pustular infection Plan of care discussed with on-call dermatology -Believe patient has some sort of pustular skin lesion worsen with secondary infection -In agreement with IV antibiotic with daptomycin to cover for MRSA -then transition to PO Bactrim prior to discharge as per sensitivity -ID eval requested-appreciate input Appreciate input, given different stage of crusting, and itching of the rash Concern for possible viral infection/chickenpox Added acyclovir IV IV acyclovir is changed to Valtrex 1 g p.o. 3 times daily for 7 days of treatment-on discharge -Wound culture growing staph aureus MRSA -Antibiotic changed to Bactrim- HYPERTENSION Blood pressure stable, continue amlodipine HISTORY OF DEPRESSION ANXIETY DISORDER Continue SSRI/and Klonopin as needed HISTORY OF DRUG ABUSE IN THE PAST Continue Suboxone CODE STATUS: Full code DVT PROPHYLAXIS Low risk SCD and teds avoided secondary to lower extremity diffuse rash Patient is encouraged to ambulate DISPOSITION stable to be discharged home today Total time spent on discharge = 40 mins This includes examination of the patient, discharge planning, medication reconciliation, and communication with other providers. Discharge Instructions Discharge Instructions Date of Service May 19, 2018. Admission Reason for Admission: Diffuse Papular Rash Discharge Discharge Diagnosis / Problem: INFECTED RASH /POSSIBLE VARICELLA WITH STAPH MRSA INFECTION Discharge Goals Goal(s): Decrease discomfort, Improve function, Increase independence, Improve disease control, Therapeutic intervention Activity Recommendations Activity Limitations: resume your previous activity . Instructions / Follow-Up Instructions / Follow-Up HOSPITAL FOLLOW UP : 05/25/2018 @ 10:[address] Belia Elmore DO [facility] RHEUMATOLOGY FOLLOW UP : 05/22/2018 @ 2:[address] Mari Garcia MD Rheumatology [facility] Current Hospital Diet Patient's current hospital diet: Regular Diet Discharge Diet Recommended Diet: Regular Diet Pending Studies Studies pending at discharge: no Medical Emergencies . Who to Call and When: Medical Emergencies: If at any time you feel your situation is an emergency, please call 911 immediately. . Non-Emergent Contact Non-Emergency issues call your: Primary Care Provider . . "Provider Documentation" section prepared by Meron Gardner. .
[2018-05-22 16:34] LABS: VARICELLA ZOS VIR IGM AB <=0.90 (<=0.90)
== END 2018-05-19 17:32 | disposition home or self-care (01) | DRG 866 ==
LOC: C.EDB 18:23 → C.MS2W 21:06 → EEVIPCON 21:06 → ENRESERV 21:20
PROVIDERS: ADMIT Internal Medicine; ATTEND Hospitalist
DX: B01.89 Other varicella complications (principal); B95.62 Methicillin resistant Staphylococcus aureus infection as the cause of diseases classified elsewhere; M45.9 Ankylosing spondylitis of unspecified sites in spine; F17.200 Nicotine dependence, unspecified, uncomplicated; B18.2 Chronic viral hepatitis C; F41.8 Other specified anxiety disorders; F14.11 Cocaine abuse, in remission; F12.11 Cannabis abuse, in remission; I10 Essential (primary) hypertension

== ENCOUNTER 2025-07-29 10:39 | Inpatient (IN) ==
[2025-07-29] MEDS: LORazepam 1 MG/1 ML SYR ED Inj Use ONE (10:52)
[2025-07-29] MEDS: LORazepam 1 MG/1 ML SYR ED Inj Use IV STA (10:53)
[2025-07-29] MEDS: fentaNYL citrate 2,500 MCG/250 ML BAG IV SCH (10:59)
[2025-07-29] MEDS: MIDAZOLAM HCL 125 MG/250 ML BAG IV SCH (11:12)
[2025-07-29 11:14] LABS: iSTAT Art Bld Gas Base Excess -5.0 mmol/L (-9-1.8); iSTAT Art Bld Gas pCO2 Correct 40 mmHg (35-46); iSTAT Art Bld Gas pH Corrected 7.320 (7.35-7.45); iSTAT Arterial Blood Gas pO2 C 56
[2025-07-29] MEDS: MIDAZOLAM BOLUS FROM BAG IV PRN (11:25)
[2025-07-29 11:39] LABS: Hematocrit (blood only) 44.9 % (42.0-52.0); Hemoglobin 15.2 g/dl (14.0-18.0); Immature Granulocytes # (auto) 0.03 K/uL (0.01-0.20); Immature Granulocytes % (auto) 0.3 %; Mean Corpuscular Hemoglobin 30.0 pg (25.0-34.0); Mean Corpuscular Volume 88.7 fL (80.0-100.0); Platelet Count 269 K/uL (130-400); RDW Standard Deviation 41.6 fL (36.4-46.3); Red Blood Count 5.06 M/uL (4.70-6.10); White Blood Count 9.34 K/ul (4.8-10.8)
[2025-07-29 11:54] LABS: Acetaminophen < 3 ug/ml (10-30); Salicylate < 3.0 mg/dl (3.0-30)
[2025-07-29 12:02] LABS: Alanine Aminotransferase 20 U/L (7-52); Albumin Globulin Ratio 1.3 (0.9-2); Albumin Level 4.3 gm/dl (3.4-5.0); Alkaline Phosphatase 74 U/L (34-104); Anion Gap 17 (3-11); Bilirubin,Total 0.3 mg/dl (0.2-1.0); Blood Urea Nitrogen 18 mg/dl (6-23); Calcium 9.9 mg/dl (8.6-10.3); Carbon Dioxide 21 mmol/L (21-32); Chloride 100 mmol/L (98-107); Creatine Kinase 174 U/L (30-223); Globulin 3.2 gm/dl (2.5-4.0); Glucose 104 mg/dl (70-99(Fasting)); Lipase 20 U/L (11-82); Magnesium 2.1 mg/dl (1.7-2.4); Potassium 4.0 mmol/L (3.5-5.1); Sodium 138 mmol/L (136-145); Total Protein 7.5 gm/dl (6.0-8.3)
--- NOTE | 2025-07-29 12:04 | XRay Report ---
SINGLE VIEW CHEST CLINICAL HISTORY: Change in mental status. Intubation. FINDINGS: An AP, portable, supine chest radiograph is compared to study dated 12/15/2020. An endotrache al tube has been placed. The tip projects 3.3 cm above the amna. The cardiomediastinal silhouette i s top normal for projection. There is prominence of the pulmonary vasculature. Atelectasis is seen at the left lung base. No airspace consolidation or large pleural effusion is identified. No pneumothor ax is seen. The bony thorax is grossly intact. IMPRESSION: 1. An endotracheal tube has been placed as above. 2. There is prominence of the pulmonary vasculature. Correlate clinically for evidence of fluid overl oad. 3. No airspace consolidation, large pleural effusion, or pneumothorax is seen. ACT 112: Negative or not required by law. Electronically signed by: Morgan Earl M.D. 07/29/2025 12:03 PM
[2025-07-29 12:07] LABS: INR 1.0 (0.9-1.1); Prothrombin Time 10.6 Seconds (9.0-12.0)
[2025-07-29] MEDS ORDERED: SODIUM CHLORIDE 0.9% 1,000 ML IV PRN (12:13)
[2025-07-29] MEDS ORDERED: DEXTROSE 5% 1,000 ML IV PRN (12:13)
[2025-07-29] MEDS ORDERED: DEXTROSE 50% 50 ML SYRINGE IV PRN (12:13)
[2025-07-29] MEDS ORDERED: INSULIN REGULAR 250 UNITS in SODIUM CHLORIDE 0.9% 247.5 ML IV PRN (12:13)
--- NOTE | 2025-07-29 13:15 | Emergency Department Note ---
Impression & Plan Drug overdose, AMS (altered mental status), Acute hypoxemic respiratory failure, Seizure ED Provider Note ED Provider Note NAME: FELICITAS PARRISH AGE:35 SEX: Male : 1990 ARRIVES VIA: EMS INFORMANT: EMS ED PROVIDER(s): Sheyla Buchanan DO CHIEF COMPLAINT: ams, seizure, overdose HPI: This is a 35-year-old male brought in by EMS due to concern for altered mental status, seizure, and possible overdose. Belt [employer]er reported initial BLS crew got to the patient's residence with family after they found him on the floor of the bathroom. They state patient was calm and cooperative however then had a tonic-clonic appearing seizure in front of them. They called for the lead coater who came and administered IM midazolam. Patient then was not only postictal but was more sonorous, hypoxic, and due to concern for airway protection he was intubated. Patient became combative and was given IM ketamine additionally. Patient intubated with an 800 ET tube per the lead coater without any difficulty, secretions, or blood in the airway. On arrival here patient sedated with stable vital signs and unable to provide any additional history. EMS reported there was some concern by family at bedside for possible overdose but they do not know if this was intentional accidental and they do not know which medications the patient may have taken them. They state the patient does have a history of substance abuse. PAST MEDICAL HISTORY:See Below PAST SURGICAL HISTORY:See Below FAMILY HISTORY:See Below SOCIAL HISTORY:See Below HOME MEDICATIONS:See Below ALLERGIES:See Below VITALS:See Below PHYSICAL EXAMINATION: GENERAL: Intubated, well nourished HEAD: nc/at EYE EXAM: normal conjunctiva, PERRL OROPHARYNX: tongue normal and mucous membranes are moist, ET tube in place NECK: supple, no nuchal rigidity, no adenopathy LUNGS: Clear to auscultation. Normal chest wall mechanics, no w/r/r HEART: no murmurs, S1 normal and S2 normal ABDOMEN: abdomen soft, normo-active bowel sounds, no masses, no rebound or guarding. SKIN: no rashes, petechiae, orbruising UPPER EXTREMITIES: upper extremities are grossly normal. FROM, nml pulses b/l. No evidence of trauma or deformity, IO noted in the right humeral head LOWER EXTREMITIES: No pitting edema. nml pulses b/l. No evidence of trauma or deformity. NEURO EXAM: GCS 3 although intermittent spontaneous movement of his extremities Vital Signs: reviewed and remarkable Differential Diagnosis: CVA/TIA, ICH, ANDREAS, PNA, UTI, medication ADR, bacteremia/sepsis, occult trauma, hypoxia, hypercapnia, electrolyte abnormality, as well as others were considered MEDICAL DECISION MAKING: This is a 35 yo male who presents to the ER via EMS due to AMS, seizure en route with EMS with hypoxia and combative behavior requiring intubation for ventilation/oxygenation and airway protection following administration of midazolam and ketamine IM. Family reported to EMS concern for overdose initially but no med list given and no confirmation of this. Patient with occasional spontaneous movement on arrival being assisted with BVM with sats 97% and tachycardic. No evidence of trauma on exam. He was given additional doses of ativan and fentanyl for sedation while awaiting midazolam and fentanyl drips from pharmacy. Difficulty obtaining further IV access and after several attempts an IO was placed in the right tibia. Additional peripheral access eventually obtained. Sedation continued to be titrated up due to further movement to painful stimuli and additional bolus doses given to try and achieve adequate sedation to transport for CT head. Soft restraints added. IVF given. HR improved. Labs obtained and sent and EKG performed. Labs reassuring. I did discuss the history and recent events with mother who presented to bedside. Case discussed with shell shop supervisor who came and evaluated the patient at bedside and then with the hospitalist team for further mgmt. Consultation(s): 1235: Discussed with Dr. Horton. 1330: Discussed with [facility] hospitalist team for additional evaluation and mgmt. ER Treatment Provided: See below 1245: Discussed with mom. She states he had a syncopal event last night and this morning they found him on the floor of the bathroom. They helped him up and he was awake but seemed "out of it". Mom states brother called 911. She states she controls his meds and only gives him one week at a time. She states she recently had a foot infection and deals with RLS and chronic pain. She states he has made statements recently about "not wanting to deal with the pain anymore" but doesn't believe he would ever consider suicide. No prior attempts. Diagnostics Interpreted By Me: -ECG: Sinus tachycardia 105, normal axis, normal intervals, no acute ST/T wave changes -Cardiac Monitoring: An order was placed for continuous cardiac monitoring. The monitor shows a rate of 106 with sinus tachycardia rhythm. -Laboratory studies: As stated above and show below. -Imaging studies: X-ray Chest: A single view study of the chest was reviewed and was negative for cardiomegaly, focal infiltrate, effusion, pulmonary edema, or wide mediastinum. ETT in good position. Triage Nursing Note Reviewed Prior/Outside Records Reviewed Critical Care: Critical care of 78 min performed to assess and manage high likelihood of life-threatening altered mental status, acute hypoxic respiratory failure, and overdose, involving labs and imaging performed with assessment to evaluate altered mental status and seizure diagnosis with frequent reassessment. This time includes bedside time, treatment discussions with patient/family/consultants, documentation time and excludes procedure time. Past Med/Surg History Problem List (Updated 07/30/25 @ 19:27 by Sheyla Buchanan DO) Seizure (Acute) Secondary dysthymia Opioid use disorder in remission HLD (hyperlipidemia) History of substance abuse HTN (hypertension) Acute hypoxemic respiratory failure (Acute) AMS (altered mental status) (Acute) Drug overdose (Acute) Ankylosing spondylitis (Chronic) Chicken pox Diffuse papular rash Medical History Ankylosing spondylitis Social History Smoking Status: Current every day smoker Tobacco Type: Cigarettes Second Hand Exposure: No; Do You Dip or Chew Tobacco: No; Tobacco Cessation Education Requested by Patient: Yes Hx Alcohol Use: No Hx Substance Use: No Preferred Language: Bengali Communication Ability: Effective Document Control Manager Required: No Beliefs That Will Affect Care: Spiritual Current Living Situation: Family Other Information That Helps Us Care for You: No Feels Safe at Home: Yes Safety Concerns: Feels Safe At This Time Assistive Devices: None Allergies Allergies Allergy/AdvReac Type Severity Reaction Status Date / Time No Known Allergies Allergy Unverified 12/16/20 01:22 Home Meds Home Medications Medication Instructions Recorded Confirmed citalopram 40 mg tablet 40 mg PO QAM 08/12/20 07/29/25 folic acid 1 mg tablet 1 mg PO QAM 08/12/20 07/29/25 loratadine 10 mg tablet (Claritin) 10 mg PO DAILY 12/16/20 07/29/25 meloxicam 7.5 mg tablet 7.5 mg PO BID 12/16/20 07/29/25 metoprolol tartrate 50 mg tablet 50 mg PO BID 12/16/20 07/29/25 trazodone 150 mg tablet 50 mg PO HS 12/16/20 07/29/25 amlodipine 5 mg tablet 5 mg PO QAM 07/29/25 07/29/25 atorvastatin 10 mg tablet 10 mg PO HS 07/29/25 07/29/25 buprenorphine 8 mg-naloxone 2 mg 1 tab sublingual BID 07/29/25 07/29/25 sublingual tablet gabapentin 600 mg tablet 600 mg PO TID 07/29/25 07/29/25 omeprazole 20 mg capsule,delayed 20 mg PO QAM 07/29/25 07/29/25 release tofacitinib 11 mg tablet,extended 11 mg PO QAM 07/29/25 07/29/25 release 24 hr (Xeljanz XR) Results & Data (ED) Vital Signs Vital Signs - 24 hr 07/29/25 10:47 07/29/25 10:47 07/29/25 11:00 Pulse Rate 107 H 105 H Pulse Rate from SpO2 Sensor Respiratory Rate 14 35 H Respiratory Effort / Characteristics Non-Labored Respiratory Depth Normal Blood Pressure 129/75 Blood Pressure Mean 93 Pulse Oximetry 97 95 Oxygen Delivery Method Ambu-Bag Ambu-Bag Fraction of Inspired Oxygen 70 Sepsis Recent Fever Within 48 Hours No Sepsis New/Unexplained Change in Mental Status N/A Sepsis Action Taken by Nursing No Action Required End-Tidal CO2 38 07/29/25 11:05 07/29/25 11:06 07/29/25 11:15 Pulse Rate 112 H 105 H 110 H Pulse Rate from SpO2 Sensor Respiratory Rate 20 19 Respiratory Effort / Characteristics Respiratory Depth Blood Pressure 142/64 H 122/62 Blood Pressure Mean 77 82 Pulse Oximetry 100 98 Oxygen Delivery Method Mechanical Vent Mechanical Vent Fraction of Inspired Oxygen Sepsis Recent Fever Within 48 Hours Sepsis New/Unexplained Change in Mental Status Sepsis Action Taken by Nursing End-Tidal CO2 41 45 07/29/25 11:20 07/29/25 11:30 07/29/25 11:30 Pulse Rate 113 H 101 H Pulse Rate from SpO2 Sensor Respiratory Rate 20 20 Respiratory Effort / Characteristics Respiratory Depth Blood Pressure 141/92 H 144/72 H Blood Pressure Mean 99 85 Pulse Oximetry 98 100 100 Oxygen Delivery Method Mechanical Vent Mechanical Vent Mechanical Vent Fraction of Inspired Oxygen Sepsis Recent Fever Within 48 Hours Sepsis New/Unexplained Change in Mental Status Sepsis Action Taken by Nursing End-Tidal CO2 49 50 07/29/25 11:35 07/29/25 11:35 07/29/25 11:39 Pulse Rate 101 H 120 H Pulse Rate from SpO2 Sensor Respiratory Rate 20 20 Respiratory Effort / Characteristics Respiratory Depth Blood Pressure 138/66 138/66 Blood Pressure Mean 86 86 Pulse Oximetry 100 97 Oxygen Delivery Method Mechanical Vent Mechanical Vent Fraction of Inspired Oxygen Sepsis Recent Fever Within 48 Hours Sepsis New/Unexplained Change in Mental Status Sepsis Action Taken by Nursing End-Tidal CO2 50 46 07/29/25 11:41 07/29/25 11:46 07/29/25 11:46 Pulse Rate 120 H 104 H 107 H Pulse Rate from SpO2 Sensor Respiratory Rate 20 20 20 Respiratory Effort / Characteristics Respiratory Depth Blood Pressure 127/72 137/82 137/82 Blood Pressure Mean 100 104 104 Pulse Oximetry 97 97 99 Oxygen Delivery Method Mechanical Vent Mechanical Vent Mechanical Vent Fraction of Inspired Oxygen Sepsis Recent Fever Within 48 Hours Sepsis New/Unexplained Change in Mental Status Sepsis Action Taken by Nursing End-Tidal CO2 46 46 45 07/29/25 11:50 07/29/25 11:50 07/29/25 11:50 Pulse Rate 111 H 107 H Pulse Rate from SpO2 Sensor Respiratory Rate 20 20 Respiratory Effort / Characteristics Respiratory Depth Blood Pressure 128/81 128/81 128/81 Blood Pressure Mean 97 97 97 Pulse Oximetry 100 99 Oxygen Delivery Method Mechanical Vent Mechanical Vent Fraction of Inspired Oxygen Sepsis Recent Fever Within 48 Hours Sepsis New/Unexplained Change in Mental Status Sepsis Action Taken by Nursing End-Tidal CO2 49 50 07/29/25 11:51 07/29/25 11:54 07/29/25 11:55 Pulse Rate 112 H 111 H 110 H Pulse Rate from SpO2 Sensor 111 H 111 H Respiratory Rate 20 20 20 Respiratory Effort / Characteristics Respiratory Depth Blood Pressure 135/89 Blood Pressure Mean 112 Pulse Oximetry 100 100 100 Oxygen Delivery Method Mechanical Vent Fraction of Inspired Oxygen Sepsis Recent Fever Within 48 Hours Sepsis New/Unexplained Change in Mental Status Sepsis Action Taken by Nursing End-Tidal CO2 42 45 46 07/29/25 12:00 07/29/25 12:05 07/29/25 12:10 Pulse Rate 107 H 101 H Pulse Rate from SpO2 Sensor Respiratory Rate 20 20 Respiratory Effort / Characteristics Respiratory Depth Blood Pressure 149/82 H 120/87 143/87 H Blood Pressure Mean 99 94 109 Pulse Oximetry 99 100 Oxygen Delivery Method Mechanical Vent Mechanical Vent Fraction of Inspired Oxygen Sepsis Recent Fever Within 48 Hours Sepsis New/Unexplained Change in Mental Status Sepsis Action Taken by Nursing End-Tidal CO2 44 45 07/29/25 12:15 07/29/25 12:30 07/29/25 12:45 Pulse Rate 100 H 104 H 107 H Pulse Rate from SpO2 Sensor Respiratory Rate 20 20 20 Respiratory Effort / Characteristics Respiratory Depth Blood Pressure 144/86 H 146/83 H 135/92 Blood Pressure Mean 100 107 106 Pulse Oximetry 100 100 100 Oxygen Delivery Method Mechanical Vent Mechanical Vent Mechanical Vent Fraction of Inspired Oxygen Sepsis Recent Fever Within 48 Hours Sepsis New/Unexplained Change in Mental Status Sepsis Action Taken by Nursing End-Tidal CO2 49 39 38 Laboratory Data 07/30/25 06:23 07/30/25 06:23 Lab Results 07/29/25 07/29/25 07/29/25 Range/Units 10:46 11:00 11:01 WBC 9.34 (4.8-10.8) K/ul RBC 5.06 (4.70-6.10) M/uL Hgb 15.2 (14.0-18.0) g/dl POC Hgb 15.3 (14.0-18.0) g/dl Hct 44.9 (42.0-52.0) % POC Hct 45 (42-52) % MCV 88.7 (80.0-100.0) fL MCH 30.0 (25.0-34.0) pg MCHC 33.9 (32.0-36.0) g/dL RDW Std Deviation 41.6 (36.4-46.3) fL RDW Coeff of Mak 12.8 (11.5-14.5) % Plt Count 269 (130-400) K/uL MPV 9.6 (9.4-12.4) fL Immature Gran % (Auto) 0.3 % Neut % (Auto) 82.4 % Lymph % (Auto) 12.6 % Glenn % (Auto) 4.0 % Eos % (Auto) 0.6 % Baso % (Auto) 0.1 % Neut # (Auto) 7.69 H (1.40-6.50) K/uL Lymph # (Auto) 1.18 L (1.20-3.40) K/uL Glenn # (Auto) 0.37 (0.11-0.59) K/uL Eos # (Auto) 0.06 (0.00-0.50) K/uL Baso # (Auto) 0.01 (0.00-0.20) K/uL Immature Gran # (Auto) 0.03 (0.01-0.20) K/uL PT 10.6 (9.0-12.0) Seconds INR 1.0 (0.9-1.1) Specimen Type CYNDI Sample Site L Brachial POC pH 7.32 L (7.35-7.45) POC pCO2 40 (35-46) mmHg POC pO2 56 L (80-95) mmHg POC HCO3 21 (19-24) mmol/L POC Total CO2 22 L (24-31) mmol/L POC Base Excess -5.0 (-9-1.8) mmol/L O2 Sat Pulse Oximetry 97 ABG pH (Temp Correct) 7.320 L (7.35-7.45) ABG pCO2 (Temp Corrct 40 (35-46) mmHg POC ABG pO2 at Pt Temp 56 POC ABG O2 Sat 87.0 L (90-95) % Liam Test NA VBG pH Cancelled VBG pCO2 Cancelled VBG pO2 Cancelled VBG HCO3 Cancelled VBG O2 Saturation Cancelled VBG Base Excess Cancelled Barometric Pressure Cancelled O2 Delivery Device Ventilator Vent Mode AC POC FiO2 70 % End Tidal CO2 38 POC Sodium 137 (135-144) mmol/L Sodium 138 (136-145) mmol/L POC Potassium 3.8 (3.3-5.0) mmol/L Potassium 4.0 (3.5-5.1) mmol/L Chloride 100 (98-107) mmol/L Carbon Dioxide 21 (21-32) mmol/L Anion Gap 17 H (3-11) BUN 18 (6-23) mg/dl Creatinine 1.22 (0.6-1.4) mg/dl Est Cr Clr Drug Dosing Not Reportable eGFR 79.78 BUN/Creatinine Ratio 14.8 (10-20) Glucose 104 H (70-99(Fasting)) mg/dl Osmolality 300 (280-300) mOsm/kg Calcium 9.9 (8.6-10.3) mg/dl Magnesium 2.1 (1.7-2.4) mg/dl Total Bilirubin 0.3 (0.2-1.0) mg/dl AST 19 (13-39) U/L ALT 20 (7-52) U/L Alkaline Phosphatase 74 (34-104) U/L Total Creatine Kinase 174 (30-223) U/L Troponin I High Sens 4.1 (0-20) pg/ml Total Protein 7.5 (6.0-8.3) gm/dl Albumin 4.3 (3.4-5.0) gm/dl Globulin 3.2 (2.5-4.0) gm/dl Albumin/Globulin Ratio 1.3 (0.9-2) Lipase 20 (11-82) U/L Salicylates < 3.0 L (3.0-30) mg/dl Acetaminophen < 3 L (10-30) ug/ml Ethyl Alcohol mg/dL < 10.0 (<10.0) mg/dl Administered Medications Acetaminophen (Acetaminophen 325 Mg Tab) 650 mg PO Q4H PRN PRN Reason: Pain or Fever Stop: 08/28/25 16:27 Last Admin: 07/29/25 17:50 Dose: 650 mg Documented By: MARLENA Amlodipine Besylate (Amlodipine Besylate 5 Mg Tab) [facility] [place] Stop: 08/29/25 08:59 Last Admin: 07/30/25 08:25 Dose: 5 mg Documented By: Atorvastatin Calcium (Atorvastatin 10 Mg Tab) 10 mg PO HS [facility] Stop: 08/28/25 20:59 Last Admin: 07/29/25 19:45 Dose: 10 mg Documented By: ART Buprenorphine/Naloxone (Buprenorphine/Naloxone 8/2 Mg Tab) 1 tab SL BID [facility] Stop: 08/28/25 20:59 Last Admin: 07/30/25 08:29 Dose: 1 tab Documented By: Admin: 07/29/25 20:57 Dose: 1 tab Documented By: ART Citalopram Hydrobromide (Citalopram 40 Mg Tab) 40 mg PO QAM [facility] Stop: 08/29/25 08:59 Last Admin: 07/30/25 08:26 Dose: 40 mg Documented By: Admin: 07/29/25 19:46 Dose: 40 mg Documented By: ART Folic Acid (Folic Acid 1 Mg Tab) 1 mg PO QAM JAROD Stop: 08/29/25 08:59 Last Admin: 07/30/25 08:25 Dose: 1 mg Documented By: Sodium Chloride (Nss) 1,000 mls @ 125 mls/hr IV .Q8H JAROD Stop: 08/01/25 14:14 Last Admin: 07/30/25 15:57 Dose: 125 mls/hr Documented By: Infusion: 07/30/25 15:49 Dose: Infused Documented By: Admin: 07/30/25 07:49 Dose: 125 mls/hr Documented By: Infusion: 07/30/25 07:36 Dose: Infused Documented By: Admin: 07/29/25 23:36 Dose: 125 mls/hr Documented By: Infusion: 07/29/25 22:29 Dose: Infused Documented By: Admin: 07/29/25 14:29 Dose: 125 mls/hr Documented By: AMELIA Loratadine (Loratadine 10 Mg Tab) 10 mg PO DAILY JAROD Stop: 08/29/25 08:59 Last Admin: 07/30/25 08:25 Dose: 10 mg Documented By: Meloxicam (Meloxicam 7.5 Mg Tab) 7.5 mg PO BID JAROD Stop: 08/28/25 20:59 Last Admin: 07/30/25 08:26 Dose: 7.5 mg Documented By: Admin: 07/29/25 19:45 Dose: 7.5 mg Documented By: ART Metoprolol Tartrate (Metoprolol Tartrate 50 Mg Tab) 50 mg PO BID JAROD Stop: 08/28/25 20:59 Last Admin: 07/30/25 08:26 Dose: 50 mg Documented By: Admin: 07/29/25 20:57 Dose: 50 mg Documented By: ART Miscellaneous (Xeljanz Xr 11mg-Order Awaiting Action) 1 each N/A QS JAROD Stop: 08/29/25 00:00 Last Admin: 07/30/25 15:57 Dose: Not Given Documented By: Admin: 07/30/25 07:49 Dose: Not Given Documented By: Admin: 07/30/25 00:22 Dose: Not Given Documented By: ART Miscellaneous (Remove Nicoderm Patch) 1 each N/A DAILY@0859 JAROD Stop: 08/29/25 08:58 Last Admin: 07/30/25 08:26 Dose: 1 each Documented By: Nicotine (Nicotine 21 Mg/24 Hr Tdsy) 1 patch TD Q24H [facility] Stop: 08/28/25 19:29 Last Admin: 07/29/25 20:55 Dose: Not Given Documented By: ART Nicotine (Nicotine 21 Mg/24 Hr Tdsy) 1 patch TD DAILY [facility] Stop: 08/28/25 19:44 Last Admin: 07/30/25 08:26 Dose: 1 patch Documented By: Admin: 07/29/25 19:44 Dose: 1 patch Documented By: ART Nystatin (Nystatin Cr 15 Gm Tube) 1 appln EXT BID [facility] Stop: 08/28/25 20:59 Last Admin: 07/30/25 08:27 Dose: 1 appln Documented By: Admin: 07/29/25 20:57 Dose: Not Given Documented By: ART Pantoprazole Sodium (Pantoprazole 40 Mg Tab) 40 mg PO QAM [facility] Stop: 08/29/25 08:59 Last Admin: 07/30/25 08:25 Dose: 40 mg Documented By: Discontinued Medications Fentanyl Citrate (Fentanyl Bolus From Bag) 50 mcg IV Q60M PRN PRN Reason: Pain or Agitation Stop: 08/12/25 10:46 Last Admin: 07/29/25 11:25 Dose: 100 mcg Documented By: AMELIA Co-signed By: juan Sodium Chloride (Nss) 1,000 mls @ 999 mls/hr IV .Q1H1M [facility] Stop: 07/29/25 11:45 Last Infusion: 07/29/25 14:31 Dose: Infused Documented By: Admin: 07/29/25 13:28 Dose: 999 mls/hr Documented By: AMELIA Midazolam HCl (Versed) 125 mg in 250 mls @ 8 mls/hr IV .[id number] JAROD; Protocol Stop: 08/28/25 10:59 Last Titration: 07/29/25 13:02 Dose: Infused Documented By: AMELIA Co-signed By: CRISTINA Titration: 07/29/25 12:16 Dose: 4 mg/hr, 8 mls/hr Documented By: AMELIA Co-signed By: CRISTINA Titration: 07/29/25 11:56 Dose: 3 mg/hr, 6 mls/hr Documented By: AMELIA Co-signed By: CRISTINA Titration: 07/29/25 11:38 Dose: 2 mg/hr, 4 mls/hr Documented By: AMELIA Co-signed By: CRISTINA Admin: 07/29/25 11:12 Dose: 1 mg/hr, 2 mls/hr Documented By: AMELIA Co-signed By: PARAG Fentanyl Citrate (Fentanyl Citrate) 2,500 mcg in 250 mls @ 10 mls/hr IV .Q25H JAROD; Protocol Stop: 08/12/25 10:59 Last Titration: 07/30/25 07:19 Dose: Infused Documented By: Co-signed By: ART Titration: 07/29/25 13:02 Dose: 0 mcg/hr, 0 mls/hr Documented By: AMELIA Co-signed By: CRISTINA Titration: 07/29/25 12:42 Dose: 150 mcg/hr, 15 mls/hr Documented By: AMELIA Co-signed By: CRISTINA Titration: 07/29/25 12:16 Dose: 100 mcg/hr, 10 mls/hr Documented By: AMELIA Co-signed By: CRISTINA Titration: 07/29/25 11:56 Dose: 75 mcg/hr, 7.5 mls/hr Documented By: AMELIA Co-signed By: CRISTINA Titration: 07/29/25 11:38 Dose: 50 mcg/hr, 5 mls/hr Documented By: AMELIA Co-signed By: CRISTINA Admin: 07/29/25 10:59 Dose: 25 mcg/hr, 2.5 mls/hr Documented By: AMELIA Co-signed By: RASHAD Lorazepam (Lorazepam 1 Mg/1 Ml Syr Ed Inj Use) Confirm Administered Dose 4 mg .ROUTE .STK-MED ONE Stop: 07/29/25 10:46 Last Admin: 07/29/25 10:52 Dose: 2 mg Documented By: AMELIA Lorazepam (Lorazepam 1 Mg/1 Ml Syr Ed Inj Use) 2 mg IV ONE STA Stop: 07/29/25 10:45 Last Admin: 07/29/25 10:53 Dose: 2 mg Documented By: MAELIA Midazolam HCl (Midazolam Bolus From Bag) 2 mg IV Q60M PRN PRN Reason: Sedation Stop: 08/28/25 10:46 Last Admin: 07/29/25 11:25 Dose: 2 mg Documented By: AMELIA Co-signed By: juan Miscellaneous (Stat Iv Infusion Titration Per Protocol) 1 each N/A NOW STA Stop: 07/29/25 10:48 Last Admin: 07/29/25 13:32 Dose: Not Given Documented By: AMELIA Imaging Data Radiologist's Impression: Chest X-Ray 07/29/25 10:45 SINGLE VIEW CHEST CLINICAL HISTORY: Change in mental status. Intubation. FINDINGS: An AP, portable, supine chest radiograph is compared to study dated 12/15/2020. An endotracheal tube has been placed. The tip projects 3.3 cm above the amna. The cardiomediastinal silhouette is top normal for projection. There is prominence of the pulmonary vasculature. Atelectasis is seen at the left lung base. No airspace consolidation or large pleural effusion is identified. No pneumothorax is seen. The bony thorax is grossly intact. IMPRESSION: 1. An endotracheal tube has been placed as above. 2. There is prominence of the pulmonary vasculature. Correlate clinically for evidence of fluid overload. 3. No airspace consolidation, large pleural effusion, or pneumothorax is seen. ACT 112: Negative or not required by law. Electronically signed by: Morgan Earl M.D. 07/29/2025 12:[address] 07/29/25 10:45 CT head/brain wo con CLINICAL HISTORY: 35 years-old Male with ams. Acutely altered mental status TECHNIQUE: Multiple axial CT images of the head were obtained without contrast. A dose lowering technique was utilized adhering to the principles of ALARA. CT DOSE: 625.8 mGy.cm COMPARISON: 12/16/2020 FINDINGS: No acute intracranial hemorrhage, midline shift, intracranial mass, hydrocephalus, territorial ischemia or abnormal extra-axial collection. The calvarium is intact. The paranasal sinuses, mastoid air cells, and middle ear cavities are clear. IMPRESSION: No acute intracranial abnormality. ACT 112: Negative or not required by law. The above report was generated using voice recognition software. It may contain grammatical, syntax or spelling errors. Electronically signed by: Jose Carlos Boyce M.D. 07/29/2025 1:33 PM Discharge Plan Visit Data Chief Complaint: Overdose (Intentional) Stated Complaint: OVERDOSE ED Provider: Sheyla Buchanan Discharge Problem: Drug overdose, AMS (altered mental status), Acute hypoxemic respiratory failure, Seizure Patient Disposition: Admitted As Inpatient Condition: Fair Discharge Instructions Interventions: ED Discharge Assessment Last Done: 07/29/25 16:06
--- NOTE | 2025-07-29 13:18 | Communication Note ---
Date of Service: July 29, 2025 Discussed case with ED physician. During my evaluation RASS score 0 following 2 step commands. Proceeded with extubation: Patient calm and alert. Reported he only took suboxone and gabapentin last night. Patient was calm and cooperating, sent to CT scan to complete workup. I updated the ED provider. Likely stable for telemetry status Coding Level of Care Code None
[2025-07-29] MEDS: SODIUM CHLORIDE 0.9% 1,000 ML IV SCH ×2 (13:28→14:29)
--- NOTE | 2025-07-29 13:31 | History & Physical Report ---
<Statement entered by Hari Ordoñez, - 07/29/25 16:26> I have seen and examined the patient and have discussed the case with the advance practice provider. I have reviewed the advanced practitioner's documentation, and I agree with, and take responsibility for that plan of care. Patient seen while still in the ED, mother at bedside. Patient awake but still very drowsy. Most history obtained from the mother. Patient was able to answer some simple questions. He was quite definitive that he did not tried to commit suicide or overdose intentionally. Does seem to be struggling with some pain issues. Mother states that he has a host of chronic issues including some type of chronic dermatitis, chronic foot dermatitis/pain/cracking and wounds, chronic generalized pain from ankylosing spondylitis. They do seem to bounce around between the various specialists. On questioning about mental health seems as though most of the mental health has been through video visits. Concerned there may be some type of personality disorder, mother states that he will go days without sleep and then will sleep for 2 or 3 days at a time. Sleep-wake cycle seems to be altered essentially all the time. Explained to patient and mother that we will make sure that he is improved from this initial acute event. Some of these chronic issues with the dermatitis will need outpatient follow-up. Fluids and therapy evaluations, plan of care as outlined below I spent a total of 22 minutes coordinating, documenting, and providing care for this patient excluding time spent by another provider/QHP. Date of Service July 29, 2025 Assessment & Plan (1) Drug overdose: Plan: Patient is a 35y/o M with PMHx significant for ankylosing spondylitis, chronic pain syndrome, HTN, HLD, depression, history of substance abuse and GERD who was brought into the ED via EMS s/p drug overdose last evening. EMS called to patient's household earlier this AM after family found him unresponsive. Unclear how long patient was down. Displayed brief seizure activity in front of EMS crew. Seizure activity resolved s/p 10mg IM Ativan. Patient then became combative, visibly cyanotic and was "frothing at the mouth." He was intubated on the scene by ALS crew. Patient with RASS score 0, following 2 step commands in the ED. Was subsequently extubated in the ED. Patient A&Ox3 during the time of my evaluation, saturating on RA. Calm and cooperative with questioning. Flat affect. Labs personally reviewed and grossly unremarkable including CBC and CMP. Head CT unremarkable. ABG fair. Acetaminophen, salicylate and EtOH levels negligible. Patient admits to taking 1800mg gabapentin, half of his Suboxone and 50mg trazodone last night. Denies any additional substances or medications. No prior history of seizures. Denies any thoughts of hurting himself but admits to significant depression 2/2 chronic pain ISO his ankylosing spondylitis. Full urine tox screen still pending. For now, will continue IVF and closely monitor respiratory status s/p extubation. Appreciate psychiatry consult, patient made aware. Hold gabapentin and trazodone for now. (2) HTN (hypertension): Plan: Continue Lopressor, Norvasc with hold parameters. (3) Ankylosing spondylitis: Plan: Diagnosed around age 7 per patient and his mother. Continue Mobic. Holding gabapentin for now as per above. Patient reportedly with recent falls, appreciate PT eval. Continue Xeljanz. Would likely benefit from outpatient pain management referral if not already established. (4) History of substance abuse: Plan: Continue Suboxone. (5) HLD (hyperlipidemia): Plan: Continue statin. DVT Prophylaxis: SCDs/TEDs only for now Code Status: FULL CODE PCP: NO PCP --> Will need to arrange PCP before DC Disposition: Admit to PCU Patient seen in collaboration with Dr. Ordoñez. Please see addendum. I spent a total of 72 minutes coordinating, documenting, and providing care for this patient excluding time spent in the performance of separately billed services or time spent by another provider/QHP. This included personally reviewing all current laboratories and imaging studies, medical reconciliation, outpatient chart review and discussion with specialists. This chart was completed in part utilizing Speech Voice Recognition Software. Grammatical errors, random word insertions, pronoun errors, and incomplete sentences are an occasional consequence of this system due to software limitations, ambient noise, and hardware issues. Any formal questions or concer ns about the content, text, or information contained within the body of this dictation should be directly addressed to the provider for clarification. History of Present Illness Chief Complaint: Drug overdose Primary Care Provider: NO PCP Patient is a 35y/o M with PMHx significant for ankylosing spondylitis, chronic pain syndrome, HTN, HLD, depression, history of substance abuse and GERD who was brought into the ED via EMS s/p drug overdose. EMS was called to the patient's household earlier this AM after his family found his unresponsive on his bathroom floor. Unclear how long patient was down. Displayed brief seizure activity in front of EMS crew. 10mg IM Ativan was administered and seizure activity halted. Patient then became combative, cyanotic and was "frothing at the mouth." He was administered 100mg IM ketamine and intubated on the scene by ALS crew. IO access had to be obtained in the left shoulder secondary to inability to obtain IV access on the scene. Patient was seen and evaluated by the on-call critical care physician, Dr. Horton, in room B1 of the ED. Had RASS score 0 and was following 2 step commands. Extubation was subsequently performed. Upon my evaluation in the ED, patient was A&Ox3 and calm in demeanor. Patient's mother, Iva, at bedside. States he took 1800mg gabapentin, half of his Suboxone and 50mg trazodone last evening prior to going to bed. His mother mentioned that he passed out yesterday evening before dinner and fell to the kitchen floor but then aroused spontaneously. This was the last time his family had seen him up until this morning when they found him in his bathroom. Reportedly the patient's mother controls his medications. Patient denies taking any additional substances last evening including any his other home medications or recreational drugs. Also denies any alcohol use. He is on Suboxone for chronic pain syndrome due to his history of ankylosing spondylitis. Patient admits to being in constant pain, primarily in his lower back with reports of BLE neuropathy as well. This does make him feel very depressed but he denies any suicidal ideations. He denies any intention of hurting himself last evening. No previous suicide attempts per the patient or his mother. Workup in the ED so far has been grossly unrevealing including CBC, ABG and CMP. Salicylate and acetaminophen levels negligible. Head CT with no acute intracranial abnormalities. Urine tox screen still pending. Allergies Allergy/AdvReac Type Severity Reaction Status Date / Time No Known Allergies Allergy Unverified 12/16/20 01:22 Home Medications Medication Instructions Recorded Confirmed Type citalopram 40 mg tablet 40 mg PO QAM 08/12/20 07/29/25 History folic acid 1 mg tablet 1 mg PO QAM 08/12/20 07/29/25 History loratadine 10 mg tablet (Claritin) 10 mg PO DAILY 12/16/20 07/29/25 History meloxicam 7.5 mg tablet 7.5 mg PO BID 12/16/20 07/29/25 History metoprolol tartrate 50 mg tablet 50 mg PO BID 12/16/20 07/29/25 History trazodone 150 mg tablet 50 mg PO HS 12/16/20 07/29/25 History amlodipine 5 mg tablet 5 mg PO QAM 07/29/25 07/29/25 History atorvastatin 10 mg tablet 10 mg PO HS 07/29/25 07/29/25 History buprenorphine 8 mg-naloxone 2 mg 1 tab sublingual BID 07/29/25 07/29/25 History sublingual tablet gabapentin 600 mg tablet 600 mg PO TID 07/29/25 07/29/25 History omeprazole 20 mg capsule,delayed 20 mg PO QAM 07/29/25 07/29/25 History release tofacitinib 11 mg tablet,extended 11 mg PO QAM 07/29/25 07/29/25 History release 24 hr (Xeljanz XR) Past Med/Surg History Problem List (Updated 07/29/25 @ 15:09 by Leona Nobles PA-C) HLD (hyperlipidemia) History of substance abuse HTN (hypertension) Acute hypoxemic respiratory failure (Acute) AMS (altered mental status) (Acute) Drug overdose (Acute) Ankylosing spondylitis (Chronic) Chicken pox Diffuse papular rash Medical History Ankylosing spondylitis Social History Smoking Status: Unknown if ever smoked Preferred Language: Occitan Beliefs That Will Affect Care: Sabianist Feels Safe at Home: Yes Review of Systems Review of Systems: At least ten systems reviewed and negative, except as noted in the HPI. Physical Exam Physical Exam: General: M, NAD, sitting up in bed, somewhat drowsy but A&Ox3, patient's mother at bedside HEENT: Normocephalic, atraumatic, external ear and nose normal, somewhat dry mucous membranes Respiratory: Normal respiratory effort,CTAB, no accessory muscle use, on RA Cardiovascular: Tachycardic rate, regular rate, normal peripheral pulses, no BLE edema Abdomen/GI: Normal bowel sounds, soft, nontender to palpation in all quadrants Extremities/Musculoskeletal: No cyanosis or clubbing, extremities motor strength intact, actively moves all extremities Neurologic: No overt focal deficits, CN's II-XI not formally tested but appear grossly intact bilaterally Results & Data Results & Data Vital Signs (Past 12 Hours) Vital Signs Pulse Resp BP Pulse Ox O2 Del Method FiO2 07/29/25 12:45 107 H 20 135/92 100 Mechanical Vent 07/29/25 12:30 104 H 20 146/83 H 100 Mechanical Vent 07/29/25 12:15 100 H 20 144/86 H 100 Mechanical Vent 07/29/25 12:10 101 H 20 143/87 H 100 Mechanical Vent 07/29/25 12:05 107 H 20 120/87 99 Mechanical Vent 07/29/25 12:00 149/82 H 07/29/25 11:55 110 H 20 135/89 100 Mechanical Vent 07/29/25 11:54 111 H 20 100 07/29/25 11:51 112 H 20 100 07/29/25 11:50 128/81 10 11:50 107 H 20 128/81 99 Mechanical Vent 07/29/25 11:50 111 H 20 128/81 100 Mechanical Vent 07/29/25 11:46 107 H 20 137/82 99 Mechanical Vent 07/29/25 11:46 104 H 20 137/82 97 Mechanical Vent 07/29/25 11:41 120 H 20 127/72 97 Mechanical Vent 25 11:39 120 H 20 97 Mechanical Vent 25 11:35 138/66 1025 11:35 101 H 20 138/66 100 Mechanical Vent 10/25 11:30 101 H 20 144/72 H 100 Mechanical Vent 10/25 11:30 100 Mechanical Vent 1025 11:20 113 H 20 141/92 H 98 Mechanical Vent 10/25 11:15 110 H 19 122/62 98 Mechanical Vent 10//25 11:06 105 H 20 142/64 H 100 Mechanical Vent 10/25 11:05 112 H 25 11:00 105 H 35 H 95 70 10/20/25 10:47 Ambu-Bag 07/29/25 10:47 107 H 14 129/75 97 Ambu-Bag Laboratory Results Short CBC 07/29/25 Range/Units 11:00 WBC 9.34 (4.8-10.8) K/ul Hgb 15.2 (14.0-18.0) g/dl Hct 44.9 (42.0-52.0) % Plt Count 269 (130-400) K/uL BMP 07/29/25 11:00 Sodium 138 Potassium 4.0 Chloride 100 Carbon Dioxide 21 BUN 18 Creatinine 1.22 Glucose 104 H Calcium 9.9 Cardiac Enzymes 07/29/25 Range/Units 11:00 Total Creatine Kinase 174 (30-223) U/L Liver Function 07/29/25 Range/Units 11:00 Total Bilirubin 0.3 (0.2-1.0) mg/dl AST 19 (13-39) U/L ALT 20 (7-52) U/L Alkaline Phosphatase 74 (34-104) U/L Albumin 4.3 (3.4-5.0) gm/dl Diagnostic Findings Chest X-Ray 07/29/25 10:45 SINGLE VIEW CHEST CLINICAL HISTORY: Change in mental status. Intubation. FINDINGS: An AP, portable, supine chest radiograph is compared to study dated 12/15/2020. An endotracheal tube has been placed. The tip projects 3.3 cm above the amna. The cardiomediastinal silhouette is top normal for projection. There is prominence of the pulmonary vasculature. Atelectasis is seen at the left lung base. No airspace consolidation or large pleural effusion is identified. No pneumothorax is seen. The bony thorax is grossly intact. IMPRESSION: 1. An endotracheal tube has been placed as above. 2. There is prominence of the pulmonary vasculature. Correlate clinically for evidence of fluid overload. 3. No airspace consolidation, large pleural effusion, or pneumothorax is seen. ACT 112: Negative or not required by law. Electronically signed by: Morgan Earl M.D. 07/29/2025 12:03 PM Medications Administered Fentanyl Citrate (Fentanyl Bolus From Bag) 50 mcg IV Q60M PRN PRN Reason: Pain or Agitation Stop: 08/12/25 10:46 Last Admin: 07/29/25 11:25 Dose: 100 mcg Documented By: AMELIA Co-signed By: juan Midazolam HCl (Versed) 125 mg in 250 mls @ 8 mls/hr IV .[id number] [facility]; Protocol Stop: 08/28/25 10:59 Last Titration: 07/29/25 13:02 Dose: Infused Documented By: AMELIA Co-signed By: CRISTINA Titration: 07/29/25 12:16 Dose: 4 mg/hr, 8 mls/hr Documented By: AMELIA Co-signed By: CRISTINA Titration: 07/29/25 11:56 Dose: 3 mg/hr, 6 mls/hr Documented By: AMELIA Co-signed By: CRISTINA Titration: 07/29/25 11:38 Dose: 2 mg/hr, 4 mls/hr Documented By: AMELIA Co-signed By: CRISTINA Admin: 07/29/25 11:12 Dose: 1 mg/hr, 2 mls/hr Documented By: AMELIA Co-signed By: PARAG Fentanyl Citrate (Fentanyl Citrate) 2,500 mcg in 250 mls @ 10 mls/hr IV .Q25H [facility]; Protocol Stop: 08/12/25 10:59 Last Titration: 07/29/25 13:02 Dose: 0 mcg/hr, 0 mls/hr Documented By: AMELIA Co-signed By: CRISTINA Titration: 07/29/25 12:42 Dose: 150 mcg/hr, 15 mls/hr Documented By: AMELIA Co-signed By: CRISTINA Titration: 07/29/25 12:16 Dose: 100 mcg/hr, 10 mls/hr Documented By: AMELIA Co-signed By: CRISTINA Titration: 07/29/25 11:56 Dose: 75 mcg/hr, 7.5 mls/hr Documented By: AMELIA Co-signed By: CRISTINA Titration: 07/29/25 11:38 Dose: 50 mcg/hr, 5 mls/hr Documented By: AMELIA Co-signed By: CRISTINA Admin: 07/29/25 10:59 Dose: 25 mcg/hr, 2.5 mls/hr Documented By: AMELIA Co-signed By: KMO Midazolam HCl (Midazolam Bolus From Bag) 2 mg IV Q60M PRN PRN Reason: Sedation Stop: 08/28/25 10:46 Last Admin: 07/29/25 11:25 Dose: 2 mg Documented By: AMELIA Co-signed By: juan Discontinued Medications Sodium Chloride (Nss) 1,000 mls @ 999 mls/hr IV .Q1H1M JAROD Stop: 07/29/25 11:45 Last Admin: 07/29/25 13:28 Dose: 999 mls/hr Documented By: AMELIA Lorazepam (Lorazepam 1 Mg/1 Ml Syr Ed Inj Use) Confirm Administered Dose 4 mg .ROUTE .STK-MED ONE Stop: 07/29/25 10:46 Last Admin: 07/29/25 10:52 Dose: 2 mg Documented By: AMELIA Lorazepam (Lorazepam 1 Mg/1 Ml Syr Ed Inj Use) 2 mg IV ONE STA Stop: 07/29/25 10:45 Last Admin: 07/29/25 10:53 Dose: 2 mg Documented By: AMELIA
[2025-07-29] MEDS: STAT IV Infusion **Titration per Protocol STA (13:32)
--- NOTE | 2025-07-29 13:35 | CT Scan Report ---
CT head/brain wo con CLINICAL HISTORY: 35 years-old Male with ams. Acutely altered mental status TECHNIQUE: Multiple axial CT images of the head were obtained without contrast. A dose lowering tech nique was utilized adhering to the principles of ALARA. CT DOSE: 625.8 mGy.cm COMPARISON: 12/16/2020 FINDINGS: No acute intracranial hemorrhage, midline shift, intracranial mass, hydrocephalus, territorial ischem ia or abnormal extra-axial collection. The calvarium is intact. The paranasal sinuses, mastoid air cells, and middle ear cavities are clear . IMPRESSION: No acute intracranial abnormality. ACT 112: Negative or not required by law. The above report was generated using voice recognition software. It may contain grammatical, syntax o r spelling errors. Electronically signed by: Jose Carlos Boyce M.D. 07/29/2025 1:33 PM
[2025-07-29] MEDS ORDERED: POLYETHYLENE (MIRALAX) 17 GM PACK PO PRN (16:28)
[2025-07-29] MEDS ORDERED: MAGNESIUM HYDROXIDE SUSP 30 ML UDC PO PRN (16:28)
[2025-07-29] MEDS: ACETAMINOPHEN 325 MG TAB PO PRN (17:50)
[2025-07-29 18:56] LABS: Appearance Urine Clear (Clear); Glucose Urine UA Negative (Negative)
[2025-07-29 19:04] LABS: Bacteria Urine Automated None Seen (None Seen); RBC Urine Automated 0-2 /hpf (0-2)
[2025-07-29] MEDS: NICOTINE 21 MG/24 HR TDSY TD SCH ×2 (19:44→20:55)
[2025-07-29] MEDS: ATORVASTATIN 10 MG TAB PO SCH (19:45)
[2025-07-29] MEDS: MELOXICAM 7.5 MG TAB PO SCH (19:45)
[2025-07-29] MEDS: CITALOPRAM 40 MG TAB PO SCH (19:46)
[2025-07-29 20:04] LABS: Amphetamines+Metham, Urine Pos (Neg); MDMA (Ecstacy), Urine Pos (Neg); Marijuana, Urine Pos (Neg)
[2025-07-29] MEDS: BUPRENORPHINE/NALOXONE 8/2 MG TAB SL SCH (20:57)
[2025-07-29] MEDS: NYSTATIN CR 15 GM TUBE EXT SCH (20:57)
[2025-07-29] MEDS: METOPROLOL TARTRATE 50 MG TAB PO SCH (20:57)
--- NOTE | 2025-07-30 06:04 | Electrocardiogram Report ---
Test Reason : Blood Pressure : */* mmHG Vent. Rate : 105 BPM Atrial Rate : 105 BPM P-R Int : 156 ms QRS Dur : 92 ms QT Int : 360 ms P-R-T Axes : -25 -4 -14 degrees QTcB Int : 475 ms Sinus tachycardia Possible Inferior infarct , age undetermined Abnormal ECG When compared with ECG of 15-Dec-2020 23:32, Nonspecific T wave abnormality, worse in Inferior leads QT has lengthened Confirmed by Pb Morillo ([id number]) on 07/30/2025 6:04:26 AM Referred By: Confirmed By: Pb Morillo
[2025-07-30 06:44] LABS: Hematocrit (blood only) 38.3 % (42.0-52.0); Hemoglobin 13.0 g/dl (14.0-18.0); Mean Corpuscular Hemoglobin 29.9 pg (25.0-34.0); Mean Corpuscular Volume 88.0 fL (80.0-100.0); Platelet Count 210 K/uL (130-400); RDW Standard Deviation 41.6 fL (36.4-46.3); Red Blood Count 4.35 M/uL (4.70-6.10); White Blood Count 7.13 K/ul (4.8-10.8)
[2025-07-30 07:10] LABS: Alanine Aminotransferase 14.0 U/L (7-52); Albumin Globulin Ratio 1.3 (0.9-2); Albumin Level 3.3 gm/dl (3.4-5.0); Alkaline Phosphatase 57.0 U/L (34-104); Anion Gap 5.0 (3-11); Bilirubin,Total 0.4 mg/dl (0.2-1.0); Blood Urea Nitrogen 15.0 mg/dl (6-23); Calcium 8.7 mg/dl (8.6-10.3); Carbon Dioxide 27.0 mmol/L (21-32); Chloride 108.0 mmol/L (98-107); Creatinine Clr Calc Pharmacy 134.0 ml/min; Globulin 2.6 gm/dl (2.5-4.0); Glucose 88.0 mg/dl (70-99(Fasting)); Magnesium 2.0 mg/dl (1.7-2.4); Potassium 4.0 mmol/L (3.5-5.1); Sodium 140.0 mmol/L (136-145); Total Protein 5.9 gm/dl (6.0-8.3)
[2025-07-30] MEDS: FOLIC ACID 1 MG TAB PO SCH (08:25)
[2025-07-30] MEDS: LORATADINE 10 MG TAB PO SCH (08:25)
[2025-07-30] MEDS: REMOVE NICODERM PATCH SCH (08:26)
--- NOTE | 2025-07-30 11:20 | Psychiatric Consultation ---
Date of Consultation July 30, 2025 Impression / Recommendations Impression Charlie Roldan is a 35-year-old male, with medical history of ankylosing spondylitis, and psychiatric history significant for past substance use and depression, who was admitted after he was found unresponsive at home. Overdose was initially suspected, and psychiatry was consulted to rule out intentional overdose/suicide attempt. He reports a psychiatric history of mild depression, and history of substance use, including opiate use disorder which is in remission utilizing medication assisted therapy (Suboxone) for the past 5 years. patient has consistently reported that he did not intentionally overdose. It is not clear at this time whether an overdose truly occurred. He took his regularly scheduled medications, and use marijuana which she does on a daily basis. It is possible that he had laced marijuana, but by his report that was 2 days prior to this event and unlikely to be related. Could explain his UDS being positive for methamphetamine though. The benzodiazepine's were likely p ositive since he received Ativan administered by EMS after he had the seizure. His mood is perhaps mildly dysthymic, but not significantly depressed. The dysthymia is primarily secondary to his chronic pain. Does not report any hopelessness, and has no history of suicide attempts. There is no family history of suicide attempts either. Overall, his risk of suicide is low based on assessment today, and there is not significant evidence suggesting that this was a suicide attempt. Overall, I spent a total of 45 minutes on this patient's care, including review of chart/records, direct evaluation of the patient, ordering medication, coordination with nursing, interdisciplinary team meeting, and documentation. (1) Opioid use disorder in remission: (2) Secondary dysthymia: Plan - No need for inpatient psychiatric admission or 1:1 at this time. Suicide precautions can be discontinued. - Recommend restarting Celexa 40 mg, which is prescribed by his PCP and helpful for his mood. - No medication changes needed. - As of today, he declined offers to connect him with outpatient services, and plans to continue with his PCP Psych History Identifying Data Charlie Roldan is a 35-year-old male, with medical history of ankylosing spondylitis, and psychiatric history significant for past substance use and depression, who was admitted after he was found unresponsive at home. Overdose was initially suspected, and psychiatry was consulted to rule out intentional overdose/suicide attempt. Patient was brought to the hospital via EMS after his brother found him unresponsive at home. He had brief seizure activity witnessed by the EMS crew, then became combative and visibly cyanotic. He was intubated on the scene, and subsequently extubated in the emergency room. Urine drug screen was positive for benzos and methamphetamine, and so overdose was suspected. Since admission, patient has denied that it was intentional overdose. Chief Complaint "I guess I passed out." History of Present Illness Mr. Roldan is not previously known to this department. He reports a psychiatric history of mild depression, and history of substance use, including opiate use disorder which is in remission utilizing medication assisted therapy (Suboxone) for the past 5 years. He states he cannot recall much about the events of yesterday. He says "I gu ess I passed out." He said he woke up and ran to the bathroom, since he needed to urinate, and passed out on the floor. He believes his brother found him right away and called EMS. He states since he had just woken up, he cannot say if he had been feeling differently or ill in any way. He said the day prior, he had been having worse pain. He used marijuana, which he does daily. He estimates about 1/4 ounce marijuana use daily. He smokes and uses edibles. He denied using kratom, prescription pain pills, or any illicit drugs within the last few days. He did say that the marijuana he smoked 2 days ago "felt different", and believed it may have been laced with something. He does report dysthymia, mostly related to his chronic pain. he continues to adamantly deny any suicidality. He does not describe significant depression symptoms such as anhedonia, irritability, excessive guilt, or changes to energy or concentration. During the encounter, he appeared to be forthcoming and was not particularly guarded. Past Psychiatric History Previous Psych History: Reports he has suicidal ideation in his teenage/early 20s years. He never had a history of a suicide attempt. No history of hospitalization. He is prescribed Celexa and trazodone by his PCP, and feels that is helpful. No outpatient treatment. He does have a significant substance use history, including heroin use in the past. He says he has been sober from that for at least 5 years. He is presently on Suboxone regularly and feels that helps his sobriety. - Family psychiatric history- patient's brother of a heroin overdose Social history- patient is originally from the [place] area. He moved here when his dad , and left him 150[place] acre parcel of land, including a farm. His mother lives on a farm now, and patient lives in a house with his brother in [place]. He said he moved out here also to get away from triggers for substance use. He has remained sober since then. He feels his family is are good supports, and he also has close friends who are supportive. 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 Allergies Allergy/AdvReac Type Severity Reaction Status Date / Time No Known Allergies Allergy Unverified 12/16/20 01:22 Home Medications Medication Instructions Recorded Confirmed Type citalopram 40 mg tablet 40 mg PO QAM 08/12/20 07/29/25 History folic acid 1 mg tablet 1 mg PO QAM 08/12/20 07/29/25 History loratadine 10 mg tablet (Claritin) 10 mg PO DAILY 12/16/20 07/29/25 History meloxicam 7.5 mg tablet 7.5 mg PO BID 12/16/20 07/29/25 History metoprolol tartrate 50 mg tablet 50 mg PO BID 12/16/20 07/29/25 History trazodone 150 mg tablet 50 mg PO HS 12/16/20 07/29/25 History amlodipine 5 mg tablet 5 mg PO QAM 07/29/25 07/29/25 History atorvastatin 10 mg tablet 10 mg PO HS 07/29/25 07/29/25 History buprenorphine 8 mg-naloxone 2 mg 1 tab sublingual BID 07/29/25 07/29/25 History sublingual tablet gabapentin 600 mg tablet 600 mg PO TID 07/29/25 07/29/25 History omeprazole 20 mg capsule,delayed 20 mg PO QAM 07/29/25 07/29/25 History release tofacitinib 11 mg tablet,extended 11 mg PO QAM 07/29/25 07/29/25 History release 24 hr (Xeljanz XR) Patient History Medical History Ankylosing spondylitis Social History Smoking Status: Current every day smoker Tobacco Type: Cigarettes Second Hand Exposure: No; Do You Dip or Chew Tobacco: No; Tobacco Cessation Education Requested by Patient: Yes Hx Alcohol Use: No Hx Substance Use: No Preferred Language: Japanese Communication Ability: Effective Paperhanger Supervisor Required: No Beliefs That Will Affect Care: None Current Living Situation: Family Other Information That Helps Us Care for You: No Feels Safe at Home: Yes Safety Concerns: Feels Safe At This Time Assistive Devices: None Physical Exam Psychiatric: Orientation: alert, oriented x 3 and cooperative Apperance: appropriately dressed, appropriately groomed and appeared stated age Eye Contact: good eye contact Motor Behavior: steady gait and station and no abnormal motor movements Speech: normal rate/rhythm/volume of speech Affect: euthymic affect and mood congruent with affect Euthymic, tired Thought Process: goal directed thought process, linear/logical thought process, clear/coherent thought process and thought association intact Thought Content: reality based without delusions Suicidal Thoughts: denies suicidal thoughts, denies suicidal plan and denies suicidal intent Homicidal Thoughts: denies homicidal thoughts, denies homicidal plan and denies homicidal intent Hallucinations: no auditory hallucinations and no visual hallucinations Cognition: recent memory grossly intact, remote memory grossly intact, attention grossly intact and language grossly intact Estimated Intelligence: average estimated intelligence and consistent with education level Insight: + fair insight Judgment: + fair judgement Vital Signs (Past 24 Hours): Last Vital Signs Temp 36.7 C 07/30/25 11:02 Pulse 62 07/30/25 11:02 Resp 18 07/30/25 11:02 BP 128/73 07/30/25 11:02 Pulse Ox 94 07/30/25 11:02 O2 Del Method Room Air 07/30/25 11:02 FiO2 70 07/29/25 11:00 Results & Data (PSY) Medications Administered Acetaminophen (Acetaminophen 325 Mg Tab) 650 mg PO Q4H PRN PRN Reason: Pain or Fever Stop: 08/28/25 16:27 Last Admin: 07/29/25 17:50 Dose: 650 mg Documented By: MARLENA Amlodipine Besylate (Amlodipine Besylate 5 Mg Tab) 5 mg PO QAM JAROD Stop: 08/29/25 08:59 Last Admin: 07/30/25 08:25 Dose: 5 mg Documented By: MS Atorvastatin Calcium (Atorvastatin 10 Mg Tab) 10 mg PO HS JAROD Stop: 08/28/25 20:59 Last Admin: 07/29/25 19:45 Dose: 10 mg Documented By: ART Buprenorphine/Naloxone (Buprenorphine/Naloxone 8/2 Mg Tab) 1 tab SL BID JAROD Stop: 08/28/25 20:59 Last Admin: 07/30/25 08:29 Dose: 1 tab Documented By: Admin: 07/29/25 20:57 Dose: 1 tab Documented By: ART Citalopram Hydrobromide (Citalopram 40 Mg Tab) 40 mg PO QAM JAROD Stop: 08/29/25 08:59 Last Admin: 07/30/25 08:26 Dose: 40 mg Documented By: Admin: 07/29/25 19:46 Dose: 40 mg Documented By: ART Folic Acid (Folic Acid 1 Mg Tab) 1 mg PO QAM JAROD Stop: 08/29/25 08:59 Last Admin: 07/30/25 08:25 Dose: 1 mg Documented By: Sodium Chloride (Nss) 1,000 mls @ 125 mls/hr IV .Q8H JAROD Stop: 08/01/25 14:14 Last Admin: 07/30/25 07:49 Dose: 125 mls/hr Documented By: Infusion: 07/30/25 07:36 Dose: Infused Documented By: Admin: 07/29/25 23:36 Dose: 125 mls/hr Documented By: Infusion: 07/29/25 22:29 Dose: Infused Documented By: [facility] Admin: 07/29/25 14:29 Dose: 125 mls/hr Documented By: AMELIA Loratadine (Loratadine 10 Mg Tab) 10 mg PO DAILY JAROD Stop: 08/29/25 08:59 Last Admin: 07/30/25 08:25 Dose: 10 mg Documented By: MS Meloxicam (Meloxicam 7.5 Mg Tab) 7.5 mg PO BID JAROD Stop: 08/28/25 20:59 Last Admin: 07/30/25 08:26 Dose: 7.5 mg Documented By: Admin: 07/29/25 19:45 Dose: 7.5 mg Documented By: ART Metoprolol Tartrate (Metoprolol Tartrate 50 Mg Tab) 50 mg PO BID JAROD Stop: 08/28/25 20:59 Last Admin: 07/30/25 08:26 Dose: 50 mg Documented By: Admin: 07/29/25 20:57 Dose: 50 mg Documented By: ART Bowers (Xeljanz Xr 11mg-Order Awaiting Action) 1 each N/A QS [facility] Stop: 08/29/25 00:00 Last Admin: 07/30/25 07:49 Dose: Not Given Documented By: Admin: 07/30/25 00:22 Dose: Not Given Documented By: ART Morenoaneous (Remove Nicoderm Patch) 1 each N/A DAILY@0859 [facility] Stop: 08/29/25 08:58 Last Admin: 07/30/25 08:26 Dose: 1 each Documented By: Nicotine (Nicotine 21 Mg/24 Hr Tdsy) 1 patch TD Q24H [facility] Stop: 08/28/25 19:29 Last Admin: 07/29/25 20:55 Dose: Not Given Documented By: ART Nicotine (Nicotine 21 Mg/24 Hr Tdsy) 1 patch TD DAILY [facility] Stop: 08/28/25 19:44 Last Admin: 07/30/25 08:26 Dose: 1 patch Documented By: Admin: 07/29/25 19:44 Dose: 1 patch Documented By: ART Nystatin (Nystatin Cr 15 Gm Tube) 1 appln EXT BID [facility] Stop: 08/28/25 20:59 Last Admin: 07/30/25 08:27 Dose: 1 appln Documented By: Admin: 07/29/25 20:57 Dose: Not Given Documented By: ART Pantoprazole Sodium (Pantoprazole 40 Mg Tab) 40 mg PO QAM JAROD Stop: 08/29/25 08:59 Last Admin: 07/30/25 08:25 Dose: 40 mg Documented By: Coding Level of Care Code 49642 [facility] Intl Hosp Care Lvl 2 Diagnoses Opioid use disorder in remission F11.91 Secondary dysthymia F34.1
--- NOTE | 2025-07-30 13:44 | Hospitalist Progress Note ---
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 EMS called to patient's household in the AM of arrival day after family found him unresponsive. Unclear how long patient was down. Displayed brief seizure activity in front of EMS crew. Seizure activity resolved s/p 10mg IM Ativan. Patient then became combative, visibly cyanotic and was "frothing at the mouth." He was intubated on the scene by ALS crew. Patient with RASS score 0, following 2 step commands in the ED. Was subsequently extubated in the ED. Patient admits to taking 1800mg gabapentin, half of his Suboxone and 50mg trazodone last night. Denies any additional substances or medications. Admitting CT Head w/ no acute findings. Labs fairly wnl. CPK 174, repeat in AM Acetaminophen, salicylate and EtOH levels negligible. Urine +ve for Benzos, Marijuana, MDMA, amphetamine. Full urine tox screen still pending. Pt now sleepy, woke up to exam, AOx3. No further seizure episodes per RN. No prior ho seizure. monitor. if recurrent consider seizure meds and neuro consult. Denies any thoughts of hurting himself but admits to significant depression 2/2 chronic pain ISO his ankylosing spondylitis. Psych evaled, recommends restarting celexa 40 mg. Hold gabapentin and trazodone for now. (2) HTN (hypertension): Plan: Continue Lopressor, Norvasc with hold parameters. (3) Ankylosing spondylitis: Plan: Diagnosed around age 7 per patient and his mother. Continue Mobic. Holding gabapentin for now as per above. Patient reportedly with recent falls, appreciate PT eval. Pending. Continue Xeljanz. Would likely benefit from outpatient physical therapy and detention exercise regimen along w/ pain mx if needed. (4) History of substance abuse: Plan: Continue Suboxone. (5) HLD (hyperlipidemia): Plan: Continue statin. DVT Prophylaxis: SCDs/TEDs only for now Code Status: FULL CODE PCP: NO PCP --> Will need arrange PCP before DC Disposition: PT eval pending, monitor for seizures, c/w ivf. likely dc ken Admission and Anticipated Discharge Date Admission Date: July 29, 2025 Subjective Patient was seen and examined at bedside. Patient was lying in bed, on room air, sleeping. Per RN, patient is gradually perking up and has not eaten. Patient woke up to bedside exam, denies sore throat/fever/cough/chest pain. Patient also denies any overdose on medication, denies suicidal ideation/homicidal ideation. Physical Exam Physical Exam: General: M, NAD, somewhat sleepy but A&Ox3. HEENT: Normocephalic, atraumatic, external ear and nose normal, somewhat dry mucous membranes Respiratory: Normal respiratory effort,CTAB, no accessory muscle use, on RA Cardiovascular: RRR, regular rate, normal peripheral pulses, no BLE edema Abdomen/GI: Normal bowel sounds, soft, nontender to palpation in all quadrants Extremities/Musculoskeletal: No cyanosis or clubbing, extremities motor strength intact, actively moves all extremities Neurologic: No overt focal deficits, CN's II-XI not formally tested but appear grossly intact bilaterally Results & Data Results & Data Vital Signs (Past 12 Hours) Vital Signs Temp Pulse Pulse Resp BP Pulse Ox O2 Del Method 07/30/25 11:02 36.7 C 62 18 128/73 94 Room Air 07/30/25 08:59 Room Air 07/30/25 08:23 36.7 C 59 L 18 124/71 95 Room Air 07/30/25 07:28 58 L 07/30/25 02:49 36.6 C 52 L 16 134/94 92 Room Air
[2025-07-31 06:48] LABS: Hematocrit (blood only) 39.0 % (42.0-52.0); Hemoglobin 13.4 g/dl (14.0-18.0); Mean Corpuscular Hemoglobin 30.2 pg (25.0-34.0); Mean Corpuscular Volume 88.0 fL (80.0-100.0); Platelet Count 212 K/uL (130-400); RDW Standard Deviation 40.6 fL (36.4-46.3); Red Blood Count 4.43 M/uL (4.70-6.10); White Blood Count 5.27 K/ul (4.8-10.8)
[2025-07-31 07:13] LABS: Anion Gap 6.0 (3-11); Blood Urea Nitrogen 13.0 mg/dl (6-23); Calcium 8.7 mg/dl (8.6-10.3); Carbon Dioxide 25.0 mmol/L (21-32); Chloride 109.0 mmol/L (98-107); Creatine Kinase 534.0 U/L (30-223); Creatinine Clr Calc Pharmacy 156.2 ml/min; Glucose 86.0 mg/dl (70-99(Fasting)); Magnesium 1.8 mg/dl (1.7-2.4); Potassium 4.2 mmol/L (3.5-5.1); Sodium 140.0 mmol/L (136-145)
[2025-07-31] MEDS: POT PHOSPHATE MONOBASIC W/ SOD TAB PO ONE (09:02)
[2025-07-31] MEDS: METOPROLOL TARTRATE 25 MG TAB PO SCH (12:20)
[2025-07-31 12:23] VITALS: BP 162/82; RESP 20; TEMP 98.1; O2SAT 98
--- NOTE | 2025-07-31 12:34 | Discharge Summary ---
Date of Service July 31, 2025 Admission HPI Per Admitting Provider Patient is a 35y/o M with PMHx significant for ankylosing spondylitis, chronic pain syndrome, HTN, HLD, depression, history of substance abuse and GERD who was brought into the ED via EMS s/p drug overdose. EMS was called to the patient's household earlier this AM after his family found his unresponsive on his bathroom floor. Unclear how long patient was down. Displayed brief seizure activity in front of EMS crew. 10mg IM Ativan was administered and seizure activity halted. Patient then became combative, cyanotic and was "frothing at the mouth." He was administered 100mg IM ketamine and intubated on the scene by ALS crew. IO access had to be obtained in the left shoulder secondary to inability to obtain IV access on the scene. Patient was seen and evaluated by the on-call critical care physician, Dr. Roxann burgos, in room B1 of the ED. Had RASS score 0 and was following 2 step commands. Extubation was subsequently performed. Upon my evaluation in the ED, patient was A&Ox3 and calm in demeanor. Patient's mother, Iva, at bedside. States he took 1800mg gabapentin, half of his Suboxone and 50mg trazodone last evening prior to going to bed. His mother mentioned that he passed out yesterday evening before dinner and fell to the kitchen floor but then aroused spontaneously. This was the last time his family had seen him up until this morning when they found him in his bathroom. Reportedly the patient's mother controls his medications. Patient denies taking any additional substances last evening including any his other home medications or recreational drugs. Also denies any alcohol use. He is on Suboxone for chronic pain syndrome due to his history of ankylosing spondylitis. Patient admits to being in constant pain, primarily in his lower back with reports of BLE neuropathy as well. This does make him feel very depressed but he denies any suicidal ideations. He denies any intention of hurting himself last evening. No previous suicide attempts per the patient or hi s mother. Workup in the ED so far has been grossly unrevealing including CBC, ABG and CMP. Salicylate and acetaminophen levels negligible. Head CT with no acute intracranial abnormalities. Urine tox screen still pending. Admission Exam Per Admitting Provider General: M, NAD, sitting up in bed, somewhat drowsy but A&Ox3, patient's mother at bedside HEENT: Normocephalic, atraumatic, external ear and nose normal, somewhat dry mucous membranes Respiratory: Normal respiratory effort,CTAB, no accessory muscle use, on RA Cardiovascular: Tachycardic rate, regular rate, normal peripheral pulses, no BLE edema Abdomen/GI: Normal bowel sounds, soft, nontender to palpation in all quadrants Extremities/Musculoskeletal: No cyanosis or clubbing, extremities motor strength intact, actively moves all extremities Neurologic: No overt focal deficits, CN's II-XI not formally tested but appear grossly intact bilaterally Principal Diagnosis Possible unintentional drug overdose Bradycardia Discharge Exam Constitutional + well hydrated; no acute distress Eyes PERRL, conjunctivae normal, anicteric sclerae ENMT external ear and nose normal, oropharynx normal Respiratory normal respiratory effort, lungs clear to auscultation Cardiovascular Rate/Rhythm: + bradycardic Gastrointestinal (Abdomen) normal bowel sounds, soft, nontender, no hepatosplenomegaly Musculoskeletal no cyanosis or clubbing, extremities motor strength 5/5 Neurologic PERRL, EOMI, accommodation nl, no face palsy, no dysarthria Psychiatric A+Ox3, euthymic affect Discharge Data Allergies Allergy/AdvReac Type Severity Reaction Status Date / Time No Known Allergies Allergy Unverified 12/16/20 01:22 Consultations 07/29/25 14:08 Consult Psychiatry Routine Ordered Studies 07/29/25 10:45 CT head/brain wo con Stat Hospital Course (1) Drug overdose: 35 year old man with PMHx significant for ankylosing spondylitis, chronic pain syndrome, HTN, HLD, depression, history of substance abuse and GERD who was brought into the ED via EMS for possible drug overdose. EMS called to patient's household in the AM of arrival day after family found him unresponsive. Unclear how long patient was down. Displayed brief seizure like activity in front of EMS crew. Seizure activity resolved s/p 10mg IM Ativan. Patient then became combative, visibly cyanotic and was "frothing at the mouth." He was intubated on the scene by ALS crew. Patient with RASS score 0, following 2 step commands in the ED. Was subsequently extubated in the ED. Admitting CT Head w/ no acute findings. Labs fairly wnl. CPK 174, Acetaminophen, salicylate and EtOH levels negligible. Urine tox screen +ve for Benzos, Marijuana, MDMA, amphetamine. Full urine tox screen still pending. Patient admits to taking 1800mg gabapentin, half of his Suboxone and 50mg trazodone the previous night. He stated he had missed his gabapentin during the day and took them at once at night Acknowledges he uses marijuana but denied MDMA use TICKET PRINTER AND TAGGER gabapentin, trazodone and celexa were held Psych evaluated and recommended resuming celexa Patient's encephalopathy on presentation thought to be likely due to unintentional drug overdose vs laced marijuana Patient counseled regarding marijuana use Also counseled on need to take meds only as prescribed (2) Bradycardia: (3) HTN (hypertension): Patient's HR has been in 40s - 50s TICKET PRINTER AND TAGGER lopressor was reduced to 25mg BID. Patient stated he has device to check his HR at home. Advised to hold lopressor dose if HR is below 60 Continue TICKET PRINTER AND TAGGER amlodipine PCP to monitor (4) Ankylosing spondylitis: Diagnosed around age 7 per patient and his mother. Continue Mobic. Holding gabapentin for now as per above. Patient reportedly with recent falls, appreciate PT eval. Pending. Continue Xeljanz. Would likely benefit from outpatient physical therapy and group home exercise regimen along w/ pain mx if needed. (5) History of substance abuse: Continue Suboxone. (6) HLD (hyperlipidemia): Continue statin. Total Time Total Time Spent Total Time Spent (In Minutes): 40 Total Time Includes: Examination of the Patient, Discharge Planning and Medication Reconciliation Discharge Plan Discharge Items Patient Disposition: Home - Self-Care Reason For Visit: DRUG OVERDOSE Discharge Diagnosis: Possible unintentional drug overdose Bradycardia Condition on Discharge: Fair Activity: Resume your previous activity Non-emergency contact: Primary Care Provider Call non-emergency contact if: you have any medication questions Follow-up/Referrals: Belia Elmore DO [Primary Care Provider] - 08/07/25 5:20 pm (Date & Time 08/07/2025 5:20 PM Provider: Belia Elmore DO [facility] ) Diet: Heart Healthy Addtl Attending Provider Instructions: Mr Roldan You were hospitalized and managed for the above listed diagnoses. Please take your medications as prescribed and avoid any illicit drugs. Your metoprolol was reduced to 25mg twice a day as we discussed. Hold dose if HR is less than 60 beats per minute. Please ensure follow up with your Primary Doctor. It was a pleasure taking care of you Pending Studies at Discharge: Yes (Detailed drug screen) Stand-Alone Forms: My [facility], Smoking Cessation Medications and DC Order Prescriptions: Continued citalopram 40 mg tablet 40 mg PO QAM folic acid 1 mg tablet 1 mg PO QAM meloxicam 7.5 mg Tablet 7.5 mg PO BID trazodone 150 mg Tablet 50 mg PO HS loratadine [Claritin] 10 mg Tablet 10 mg PO DAILY atorvastatin 10 mg tablet 10 mg PO HS amlodipine 5 mg tablet 5 mg PO QAM omeprazole 20 mg capsule,delayed release(DR/EC) 20 mg PO QAM buprenorphine-naloxone 8-2 mg tablet, sublingual 1 tab SUBLINGUAL BID Xeljanz XR 11 mg tablet extended release 24 hr 11 mg PO QAM gabapentin 600 mg tablet 600 mg PO TID Changed metoprolol tartrate 50 mg Tablet 25 mg PO BID Qty: 0 0RF Discharge Orders: Discharge Order (Routine); Ordered 07/31/25 Ordered By: Lily Robledo Admission Data Admit Date/Time: 07/29/25 13:35 Attending Provider: Lily Robledo I. Admit Provider: Hari Ordoñez Primary Care Provider: Belia Elmore Other Providers: Isi Holman; Kasi Arvizu; Hollie Briseno; Sindhu Owusu; Bob Herrera; Ana Luisa Gore; Sebastián Ga; Rosalie Bynum; Kam Dean Other Interventions: Discharge Summary Assessment (RN) Last Done: 07/31/25 12:50
[2025-07-31 14:13] VITALS: PULSE 43
== END 2025-07-31 14:45 | disposition home or self-care (01) | DRG 918 ==
LOC: ED 10:39 → EDINP 13:35 → SUATTDRO 13:35 → 4W 16:06